=== PATIENT | female | born 1955 | race Caucasian/White ===

== ENCOUNTER 2017-05-28 12:02 | Inpatient (IN) | payer BC ==
[2017-05-28] VITALS (7 sets, daily range): BP systolic 90–105; BP diastolic 55–68
[~2017-05-28] VITALS: Ht 160 cm; Wt 59.2 kg
[~2017-05-28 12:02] MED LIST: ASP81TEC PO; BIOT1000 PO; BUTA1TAB55; CALC-404 PO; CALC-962 PO; EC; ECHINACEA; ESTR1TAB24 PO; FOLI1TAB24 PO; GLUC500C2 PO; HYDR-3729 PO; HYDR-757 PO; IBUP-1773 PO; LACT1CAP39 PO; METH-336 PO; METH2.5T PO; MULT-407 PO; MULT-974 PO; OMEG1CAP51 PO; [UNRECOGNIZED DRUG - CODE] PO
[2017-05-28] MEDS ORDERED: DILTIAZEM 25 MG/5 ML INJ (CARDIZEM) VIAL ONE (12:07)
--- OUTSIDE RECORDS SUMMARY | 2017-05-28 12:07 | XMS REPORT | Continuity of Care Document ---
Author Author [facility] Organization [facility] Address Unknown Phone Unavailable Allergies Active Description Code Type Severity Reaction Onset Reported/Identified Relationship to Patient Clinical Status Yes No Known Drug Allergies [id number] Drug Allergy Mild N/A 12/21/2008 Medications There is no data. 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, CIGARETTES, IN SAAD 03/29/2015 TEE HENDRIX MARKETING COMPLIANCE MANAGER Ot L43.9 LICHEN PLANUS, UNSPECIFIED 03/29/2015 TEE HENDRIX MARKETING COMPLIANCE MANAGER Ot N94.9 UNSP COND ASSOC W FEMALE GENITAL ORGANS 03/29/2015 TEE HENDRIX MARKETING COMPLIANCE MANAGER Ot Z79.899 OTHER NON LINEAR EDITOR (CURRENT) DRUG THERAPY 04/11/2015 KEVEN HAMMER DO Ot 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 04/11/2015 KEVEN HAMMER DO Ot N70.91 SALPINGITIS, UNSPECIFIED 04/11/2015 KEVEN HAMMER DO Ot N83.9 NONINFLAMMATORY DISORD OF OVARY, FALLOP 08/23/2015 KEVEN HAMMER DO Ot N94.89 08/23/2015 KEVEN HAMMER DO Ot Z01.818 08/23/2015 HAMMER DO, KEVEN C Ot Z11.2 09/05/2015 HAMMER DO, KEVEN C Ot N94.89 OTH COND ASSOC W FEMALE GENITAL ORGANS A 09/05/2015 HAMMER DO, KEVEN C Ot Z01.818 ENCOUNTER FOR OTHER PREPROCEDURAL EXAMIN 09/05/2015 HAMMER DO, KEVEN C Ot Z11.2 ENCOUNTER FOR SCREENING FOR OTHER BACTER 09/29/2015 HAMMER DO, KEVEN C Ot N94.89 OTH COND ASSOC W FEMALE GENITAL ORGANS A 09/29/2015 HAMMER DO, KEVEN C Ot Z01.818 ENCOUNTER FOR OTHER PREPROCEDURAL EXAMIN 09/29/2015 HAMMER DO, KEVEN C Ot Z11.2 ENCOUNTER FOR SCREENING FOR OTHER BACTER 12/21/2015 NAVID BUSH MD Ot M54.16 RADICULOPATHY, LUMBAR REGION 12/22/2015 NAVID BUSH MD Ot M54.16 RADICULOPATHY, LUMBAR REGION 01/11/2016 NAVID BUSH MD Ot M54.16 RADICULOPATHY, LUMBAR REGION 03/03/2017 HAMMER DO, KEVEN C Ot N94.89 OTH COND ASSOC W FEMALE GENITAL ORGANS A 03/03/2017 HAMMER DO, KEVEN C Ot Z01.818 ENCOUNTER FOR OTHER PREPROCEDURAL EXAMIN 03/03/2017 HAMMER DO, KEVEN C Ot Z11.2 ENCOUNTER FOR SCREENING FOR OTHER BACTER 03/03/2017 NAVID BUSH MD Ot M54.16 RADICULOPATHY, LUMBAR REGION Procedures There is no data. Results There is no data. Encounters ACCT No. Visit Date/Time Discharge Status Pt. Type Provider Facility Loc./Unit Complaint [id number] 12/13/2015 11:31:00 12/13/2015 23:59:59 CLS Outpatient NAVID BUSH MD [facility] RAD LUMBAR RADICULOPATHY [id number] 04/11/2015 08:15:00 04/11/2015 14:50:00 DIS Outpatient JAQUELIN FRASER KEVEN C [facility] SDC ADNEXIA CYST [id number] 04/04/2015 07:59:00 04/04/2015 23:59:59 CLS Outpatient KEVEN HAMMER DO [facility] PREOP ADNEXIA CYST [id number] 03/29/2015 20:29:00 03/29/2015 23:28:00 DIS Emergency TEE HENDRIX APRN [facility] ER LOWER ABD/BACK PAIN [id number] 01/18/2014 10:22:00 01/18/2014 23:59:59 CLS Outpatient [id number] 08/03/2013 11:31:00 08/03/2013 16:00:00 DIS Inpatient BIJAN WESLEY, TAMMIE Kerns [facility] CSD [id number] 02/01/2013 11:44:00 02/01/2013 23:59:59 CLS Outpatient [id number] 01/25/2013 12:19:00 01/25/2013 23:59:59 CLS Outpatient [id number] 10/29/2012 07:26:00 10/29/2012 23:59:59 CLS Outpatient [id number] 09/05/2012 14:50:00 09/05/2012 23:59:59 CLS Outpatient [id number] 04/05/2014 08:23:00 Document Registration [id number] 08/06/2010 08:52:00 Document Registration [id number] 04/17/2009 13:04:00 Document Registration [id number] 04/11/2009 07:43:00 Document Registration
[2017-05-28] MEDS ORDERED: ASPIRIN 81 MG CHEW (CHILDREN'S ASA) ONE (12:13)
[2017-05-28] MEDS ORDERED: ENOXAPARIN 80 MG/0.8 ML (LOVENOX) SYR ONE (12:13)
[2017-05-28 12:24] LABS: BASOPHILS % (AUTO) 0 % (0-10); EOSINOPHILS # (AUTO) 0.1 10^3/uL (0.0-0.3); EOSINOPHILS % (AUTO) 0 % (0-10); HEMATOCRIT 45 % (35-52); HEMOGLOBIN 15.4 G/DL (11.5-16.0); LYMPHOCYTES # (AUTO) 2.1 X 10^3 (1.0-4.0); LYMPHOCYTES % (AUTO) 11 % (12-44); MEAN CORPUSCULAR HEMOGLOBIN 30 PG (25-34); MEAN CORPUSCULAR HGB CONC 35 G/DL (32-36); MEAN CORPUSCULAR VOLUME 87 FL (80-99); MEAN PLATELET VOLUME 11.1 FL (7.4-10.4); MONOCYTES # (AUTO) 1.4 X 10^3 (0.0-1.0); MONOCYTES % (AUTO) 8 % (0-12); NEUTROPHILS # (AUTO) 14.7 X 10^3 (1.8-7.8); NEUTROPHILS % (AUTO) 80 % (42-75); PLATELET COUNT 349 10^3/uL (130-400); RED BLOOD COUNT 5.14 10^6/uL (4.35-5.85); WHITE BLOOD COUNT 18.2 10^3/uL (4.3-11.0)
[2017-05-28] MEDS ORDERED: meTOproloL SUCCINATE 50 MG (TOPROL XL) TAB PO SCH (12:30)
[2017-05-28] MEDS ORDERED: DILTIAZEM 25 MG/5 ML INJ (CARDIZEM) VIAL IVP ONE (12:30)
[2017-05-28] MEDS ORDERED: ENOXAPARIN 60 MG/0.6 ML (LOVENOX) SYR SC ONE (12:30)
[2017-05-28] MEDS ORDERED: ASPIRIN 81 MG CHEW (CHILDREN'S ASA) PO ONE (12:30)
[2017-05-28 12:39] LABS: INR 0.9 (0.8-1.4); PROTHROMBIN TIME PATIENT 12.6 SEC (12.2-14.7)
[2017-05-28 12:40] LABS: ALANINE AMINOTRANSFERASE 21 U/L (0-55); ALBUMIN 4.4 GM/DL (3.2-4.5); ALKALINE PHOSPHATASE 65 U/L (40-136); BILIRUBIN,TOTAL 0.5 MG/DL (0.1-1.0); BUN/CREATININE RATIO 14; CALCIUM 9.5 MG/DL (8.5-10.1); CARBON DIOXIDE 25 MMOL/L (21-32); CHLORIDE 102 MMOL/L (98-107); CREATININE SERUM 0.84 MG/DL (0.60-1.30); GFR ESTIMATED > 60; GLUCOSE 131 MG/DL (70-105); MAGNESIUM 2.2 MG/DL (1.8-2.4); POTASSIUM 3.3 MMOL/L (3.6-5.0); SODIUM 140 MMOL/L (135-145); TOTAL PROTEIN 8.2 GM/DL (6.4-8.2)
--- NOTE | 2017-05-28 12:41 | Diagnostic Imaging Report ---
INDICATION: Tachycardia and cough. COMPARISON: 08/03/2013. FINDINGS: Upright portable view of the chest is obtained. Heart size is normal. The pulmonary vessels appear unremarkable. There is no pneumothorax, mediastinal widening, or pleural fluid demonstrated. There is some increased density at the medial right lung base concerning for infiltrate. The left lung is clear. IMPRESSION: Probable right basilar pneumonia. Short-term follow-up study is recommended. Dictated by: Dictated on workstation # [id number]
[2017-05-28 13:00] LABS: BAND NEUTROPHILS 2 %; EOSINOPHILS % (MANUAL) 3 %; LYMPHOCYTES % (MANUAL) 3 %; MONOCYTES % (MANUAL) 7 %; NEUTROPHILS % (MANUAL) 80 %
[2017-05-28 13:01] LABS: BASOPHILS % (MANUAL) 0 %; PLATELET CLUMPS SLIGHT; POIKILOCYTOSIS SLIGHT; REACTIVE LYMPHOCYTES 5 %; STOMATOCYTES SLIGHT
[2017-05-28 13:02] LABS: ROULEAUX SLIGHT; TOXIC GRANULATION/VACUOLAZATIO 2+; TSH (THYROID ANALYZER) 1.11 UIU/ML (0.35-4.94)
[2017-05-28] MEDS ORDERED: PIPERACILLIN SODIUM/TAZOBACTAM 4.5 GM in NS (IVPB) 100 ML IV ONE (13:30)
[2017-05-28] MEDS ORDERED: NS (IVPB) 100 ML ONE (14:20)
[2017-05-28] MEDS ORDERED: PIPERACILLIN/TAZO 4.5 GM VIAL (ZOSYN) IV ONE (14:20)
--- NOTE | 2017-05-28 15:20 | Consultation-Cardiology ---
HPI-Cardiology Cardiology Consultation: Date of Consultation 05/28/17 Time Seen by Provider: 14:30 Date of Admission 05-28-17 Attending Physician Radha Talamantes DO Admitting Physician Fredis Iqbal MD Consulting Physician KENROY NATARAJAN HPI: Chief Complaint: SVT Ms. Parrish is a 61 year old female who is being admitted to ICU from the ED. She was seen in the ED. She is accompanied by her spouse. She reports she was seen in [facility] earlier today. She reports she has not been feeling well for the last 2 weeks. She reports fever, chills, cough, generalized fatigue and malaise. She denies any CP, palpitations, syncope or LE edema. She reports a few days ago she was doing laundry at home. She was bent over the washing machine and when she stood up she was lightheaded; this resolved after a few minutes. She reports she was evaluated at the [facility] and told she had a fast HR and to report to the ED. She reports she has had an occ lose cough. Review of Systems-Cardiology Review of Systems Constitutional: chills, fever, lightheadedness, malaise, tiredness Eyes: No vision change Ears/Nose/Throat: No epistaxis, No recent hearing loss, No throat pain Respiratory: As described under HPI Cardiovascular: As described under HPI Gastrointestinal: No constipation, No diarrhea, No nausea, No vomiting Genitourinary: No dysuria, No hematuria Musculoskeletal: other (pain under her left arm, in the arm-pit region) Skin: No rash, No ulcerations Psychiatric/Neurological: No seizure, No focal weakness, No syncope Hematologic: No bleeding abnormalities XRL-Qwjrjm-Bszfoy Hx Patient Social History Alcohol Use: Denies Use Recreational Drug Use: No Smoking Status: Former Smoker Former smoker/When Quit: May 12, 2002 Recent Foreign Travel: No Recent Infectious Disease Expo: No Past Medical History PMH As described under Assessment. Family Medical History Family Medical History: She reports her mother had HTN and DM Family History: 19 FATHER Hypertension 19 MOTHER Diabetes mellitus Hypertension FH: breast cancer G8 BROTHER Diabetes mellitus Cardiovascular disease Hypertension Allergies and Home Medications Allergies Coded Allergies: No Known Drug Allergies (Unverified , 12/21/08) Home Medications Aspirin 81 Mg Tabec, 81 MG PO DAILY, (Reported) Biotin 10,000 Mcg Capsule, 10,000 MCG PO DAILY, (Reported) Calcium Citrate/Vitamin D3 1 Each Tablet, 1 EACH PO DAILY, (Reported) Estradiol 1 Mg Tablet, 1 MG PO DAILY, (Reported) Glucosamine Sulfate 2Kcl 1,000 Mg Tablet, 1,000 MG PO DAILY, (Reported) Hydrocodone/Acetaminophen 1 Each Tablet, 1-2 EACH PO Q4H, #45 Prescribed by: KEVEN HAMMER on 04/11/15 1210 Ibuprofen 600 Mg Tablet, 600 MG PO Q6H, #60 Prescribed by: KEVEN HAMMER on 04/11/15 1210 Lactobacillus Rhamnosus 1 Cap Capsule, 1 CAP PO DAILY, (Reported) Methylcellulose 500 Mg Tablet, 500 MG PO DAILY, (Reported) Multivitamin with Minerals 1 Each Tablet, 1 EACH PO DAILY, (Reported) [place]-3 Fatty Acids/Fish Oil 1 Each Capsule, 1,000 MG PO DAILY, (Reported) Physical Exam-Cardiology Physical Exam Vital Signs/I&O Vital Sign - Last 12Hours 05/28/17 05/28/17 12:05 16:14 Temp 99.1 Pulse 177 70 Resp 20 B/P (MAP) 122/100 (107) Pulse Ox 99 Capillary Refill : Less Than 3 Seconds Constitutional: AAO x 3, well-developed, well-nourished HEENT: PERRL, hearing is well preserved, oral hygience is good Neck: No carotid bruit, carotid pulses are 2 + bilaterally Respiratory: No accessory muscle use, No respiratory distress, other ( diminished RLL) Cardiovascular: regular rate-rhythm, No JVD, S1 and S2 Gastrointestinal: No tender, soft, round, audible bowel sounds Rectal: deferred Extremities: no lower extremity edema bilateral Neurologic/Psychiatric: grossly intact, power is 5/5 both on sides Skin: No rash, No ulcerations Data Review Labs Laboratory Tests 05/28/17 12:09: White Blood Count 18.2H, Red Blood Count 5.14, Hemoglobin 15.4, Hematocrit 45, Mean Corpuscular Volume 87, Mean Corpuscular Hemoglobin 30, Mean Corpuscular Hemoglobin Concent 35, Red Cell Distribution Width 13.0, Platelet Count 349, Mean Platelet Volume 11.1H, Neutrophils (%) (Auto) 80H, Lymphocytes (%) (Auto) 11L, Monocytes (%) (Auto) 8, Eosinophils (%) (Auto) 0, Basophils (%) (Auto) 0, Neutrophils # (Auto) 14.7H, Lymphocytes # (Auto) 2.1, Monocytes # (Auto) 1.4H, Eosinophils # (Auto) 0.1, Basophils # (Auto) 0.0, Neutrophils % (Manual) 80, Lymphocytes % (Manual) 3, Monocytes % (Manual) 7, Eosinophils % (Manual) 3, Basophils % (Manual) 0, Band Neutrophils 2, Reactive Lymphocytes 5, Toxic Granulation 2+, Clumped Platelets SLIGHT, Poikilocytosis SLIGHT, Stomatocytes SLIGHT, Rouleau SLIGHT, Prothrombin Time 12.6, INR Comment 0.9, Activated Partial Thromboplast Time 32, Sodium Level 140, Potassium Level 3.3L, Chloride Level 102, Carbon Dioxide Level 25, Anion Gap 13, Blood Urea Nitrogen 12, Creatinine 0.84, Estimat Glomerular Filtration Rate > 60, BUN/Creatinine Ratio 14, Glucose Level 131H, Calcium Level 9.5, Magnesium Level 2.2, Total Bilirubin 0.5, Aspartate Amino Transf (AST/SGOT) 20, Alanine Aminotransferase (ALT/SGPT) 21, Alkaline Phosphatase 65, Troponin I < 0.30, B-Type Natriuretic Peptide 57.3 , Total Protein 8.2, Albumin 4.4, TSH [place] Testing 1.11 05/28/17 13:25: Lactic Acid Level 1.48 Microbiology 05/28/17 Influenza Types A,B Antigen (RACQUEL) - Final, Complete Radiology NAME: TONYA PARRISH [facility] REC#: [id number] PT STATUS: ADM IN : 1955 PHYSICIAN: VITA HERNANDEZ DO ADMIT DATE: 05/28/17/ICU Signed Date of Exam: 05/28/17 CHEST 1 VIEW, AP/PA ONLY INDICATION: Tachycardia and cough. COMPARISON: 08/03/2013. FINDINGS: Upright portable view of the chest is obtained. Heart size is normal. The pulmonary vessels appear unremarkable. There is no pneumothorax, mediastinal widening, or pleural fluid demonstrated. There is some increased density at the medial right lung base concerning for infiltrate. The left lung is clear. IMPRESSION: Probable right basilar pneumonia. Short-term follow-up study is recommended. Dictated by: Dictated on workstation # [id number] Dict: 05/28/17 1237 Trans: 05/28/17 1458 Interpreted by: GRABIEL LARIOS DO Electronically signed by: GRABIEL LARIOS DO 05/28/17 1458 A/P-Cardiology Assessment/Admission Diagnosis SVT RLL infiltrate suspicious for pneumonia - medical services managing Hypokalemia - replace Exercise MPI July [address] Nunes was negative for ischemia or infarct H/O hysterectomy TSH 1.11 KENROY BUSH May 28, 2017 15:20
[2017-05-28] MEDS ORDERED: KCL 20 MEQ TAB (K-DUR) PO NR (15:45)
[2017-05-28] MEDS ORDERED: CATHETER FLUSH 10 ML SYR IV PRN (16:15)
--- NOTE | 2017-05-28 16:56 | History & Physical-Hospitalist ---
HPI History of Present Illness: HPI/Chief Complaint CC: SVT with RLL pneumonia HPI: This is a 61yoWF clinic patient of Dr Iqbal who recently took 3 days of Augmentin for bronchitis but could not continue the Rx due to nausea who presented to [facility] and was found to have a fast heart rate so [facility] ER evaluated her to have SVT which was aborted with Cardizem but then CXR revealed RLL pneumonia so she has been admitted for IV abx due to failure of Augmentin and Cardiology consulted for SVT. Source: patient Exam Limitations: no limitations Date Seen 05/28/17 Time Seen by Provider: 13:40 Attending Physician Radha Talamantes Floyd R MD Referring Physician Date of Admission May 28, 2017 at 13:20 Home Medications & Allergies Home Medications Reviewed patient Home Medication Reconciliation Form Allergies Allergies Coded Allergies No Known Drug Allergies (Unverified12/21/08) Past Luozwhq-Efxdjh-Tqfmte Hx Patient Social History Marrital Status: Employed/Student: employed ([employer]) Alcohol Use: Denies Use Recreational Drug Use: No Smoking Status: Former Smoker Former Smoker, Quit: September 09, 2002 Recent Foreign Travel: No Contact w/other who traveled: No Recent Infectious Disease Expo: No Surgeries Yes (wisdom teeth) Adenoidectomy, Hysterectomy, Oophorectomy, Tonsillectomy Respiratory No Cardiovascular Yes High Cholesterol Neurological No Reproductive System Hx Reproductive Disorders: Yes (complex left adnexal cyst) 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 Genitourinary No Gastrointestinal No Musculoskeletal No Endocrine History of Endocrine Disorders: No Cancer No Psychosocial History of Psychiatric Problem: No Integumentary History of Skin or Integumenta: Yes (LICHEN PLANUS) Blood Transfusions History of Blood Disorders: No Family Medical History Family Hx: Cardiovascular disease G8 BROTHER Diabetes mellitus 19 MOTHER G8 BROTHER FH: breast cancer 19 MOTHER Hypertension 19 FATHER 19 MOTHER G8 BROTHER Review of Systems Constitutional: see HPI, dizziness, malaise EENTM: no symptoms reported Respiratory: cough, wheezing Cardiovascular: palpitations Gastrointestinal: no symptoms reported Genitourinary: no symptoms reported Musculoskeletal: no symptoms reported Skin: no symptoms reported Psychiatric/Neurological: No Symptoms Reported All Other Systems Reviewed Negative Unless Noted: Yes Physical Exam Physical Exam Vital Signs Vital Sign - Last 12Hours 05/28/17 12:05 Temp 99.1 Pulse 177 Resp 20 B/P (MAP) 122/100 (107) Pulse Ox 99 Capillary Refill : Less Than 3 Seconds General Appearance: No Apparent Distress, WD/WN, Thin Eyes: Bilateral Eye Normal Inspection, Bilateral Eye PERRL HEENT: PERRL/EOMI, Normal ENT Inspection, Pharynx Normal Neck: Full Range of Motion, Normal Inspection, Non Tender, Supple, Carotid Bruit Respiratory: Chest Non Tender, Lungs Clear, No Accessory Muscle Use, No Respiratory Distress, Decreased Breath Sounds Cardiovascular: Regular Rate, Rhythm, No Edema, No Gallop, No JVD, No Murmur, Normal Peripheral Pulses Gastrointestinal: Normal Bowel Sounds, No Organomegaly, No Pulsatile Mass, Non Tender, Soft Back: Normal Inspection, No CVA Tenderness, No Vertebral Tenderness Extremity: Normal Capillary Refill, Normal Inspection, Normal Range of Motion, Non Tender, No Calf Tenderness, No Pedal Edema Neurologic/Psychiatric: Alert, Oriented x3, No Motor/Sensory Deficits, Normal Mood/Affect Skin: Normal Color, Warm/Dry Lymphatic: No Adenopathy Results Results/Procedures Lab Laboratory Tests 05/28/17 12:09 Assessment/Plan Admission Diagnosis Assessment: Episode of SVT aborted with Cardizem RLL Pneumonia failed outpatient Augmentin HLP Former smoker Assessment and Plan Plan: Abx MAT Cardiology appreciated RADHA TALAMANTES DO May 28, 2017 16:56
[2017-05-28] MEDS ORDERED: fentaNYL INJECTION 100 MCG/2 ML AMP IVP PRN (17:15)
[2017-05-28] MEDS ORDERED: PIPERACILLIN SODIUM/TAZOBACTAM 4.5 GM in NS (IVPB) 100 ML IV SCH (17:15)
[2017-05-28] MEDS ORDERED: HYDROcodone/APAP 5 MG/325 MG (LORTAB) TAB PO PRN (17:15)
[2017-05-28] MEDS ORDERED: ONDANSETRON 4 MG/2 ML (SDV) Z0FRAN IVP PRN (17:15)
[2017-05-28] MEDS ORDERED: ALPRAZolam 0.25 MG (XANAX) TAB PO PRN (17:15)
[2017-05-28] MEDS ORDERED: ACETAMINOPHEN 500 MG TAB (TYLENOL) PO PRN (17:15)
[2017-05-28] MEDS ORDERED: LACTULOSE SYRUP 10GM/15ML (ENULOSE) 30ML UDC PO PRN (17:15)
[2017-05-28] MEDS ORDERED: MELO15TA39 PO (17:31)
[2017-05-28] MEDS ORDERED: [UNRECOGNIZED DRUG - OTHER] PO (17:31)
[2017-05-28] MEDS ORDERED: CHOL100045 PO (17:31)
[2017-05-28] MEDS: NS IV 1000 ML 1,000 ML IV SCH (17:51)
--- NOTE | 2017-05-28 18:09 | Consultation-Cardiology ---
HPI-Cardiology Cardiology Consultation: Date of Consultation 05/28/17 Time Seen by Provider: 16:50 Date of Admission Attending Physician Radha Talamantes DO Admitting Physician Fredis Iqbal MD Consulting Physician CEDRIC STEINER MD, MA, FACP, FACC, [facility] HPI: Chief Complaint: SVT Ms. Nguyễn is a 61 year old female who is being admitted to ICU from the ED. She was seen in the ED. She is accompanied by her spouse. She reports she was seen in [facility] earlier today. She reports she has not been feeling well for the last 2 weeks. She reports fever, chills, cough, generalized fatigue and malaise. She denies any CP, palpitations, syncope or LE edema. She reports a few days ago she was doing laundry at home. She was bent over the washing machine and when she stood up she was lightheaded; this resolved after a few minutes. She reports she was evaluated at the [facility] and told she had a fast HR and to report to the ED. She reports she has had an occ lose cough. Review of Systems-Cardiology Review of Systems Constitutional: chills, fever, lightheadedness, malaise, tiredness Eyes: No vision change Ears/Nose/Throat: No epistaxis, No recent hearing loss, No throat pain Respiratory: As described under HPI Cardiovascular: As described under HPI Gastrointestinal: No constipation, No diarrhea, No nausea, No vomiting Genitourinary: No dysuria, No hematuria Musculoskeletal: other (pain under her left arm, in the arm-pit region) Skin: No rash, No ulcerations Psychiatric/Neurological: No seizure, No focal weakness, No syncope Hematologic: No bleeding abnormalities All Other Systems Reviewed Negative Unless Noted: Yes UDG-Ccbkae-Iklkqh Hx Patient Social History Marrital Status: Employed/Student: employed ([employer]s [email or web address] Alcohol Use: Denies Use Recreational Drug Use: No Smoking Status: Former Smoker Former smoker/When Quit: May 12, 2002 Recent Foreign Travel: No Recent Infectious Disease Expo: No Past Medical History PMH As described under Assessment. Family Medical History Family Medical History: She reports her mother had HTN and DM Family History: Cardiovascular disease G8 BROTHER Diabetes mellitus 19 MOTHER G8 BROTHER FH: breast cancer 19 MOTHER Hypertension 19 FATHER 19 MOTHER G8 BROTHER Allergies and Home Medications Allergies Coded Allergies: No Known Drug Allergies (Unverified , 12/21/08) Home Medications Aspirin 81 Mg Tabec, 81 MG PO DAILY, (Reported) Biotin 10,000 Mcg Capsule, 10,000 MCG PO DAILY, (Reported) Calcium Citrate/Vitamin D3 1 Each Tablet, 1 EACH PO DAILY, (Reported) Cholecalciferol (Vitamin D3) 1,000 Unit Tablet, 1,000 UNIT PO DAILY, (Reported) Estradiol 1 Mg Tablet, 1 MG PO DAILY, (Reported) Glucosamine Sulfate 2Kcl 1,000 Mg Tablet, 1,000 MG PO DAILY, (Reported) Ibuprofen 600 Mg Tablet, 600 MG PO Q6H, #60 Prescribed by: KEVEN HAMMER on 04/11/15 1210 Lactobacillus Rhamnosus 1 Cap Capsule, 1 CAP PO DAILY, (Reported) Meloxicam 15 Mg Tablet, 15 MG PO Q72H, (Reported) Multivitamin with Minerals 1 Each Tablet, 1 EACH PO DAILY, (Reported) [place]-3 Fatty Acids/Fish Oil 1 Each Capsule, 1,000 MG PO DAILY, (Reported) [[place]] , 1 TAB PO DAILY, (Reported) Physical Exam-Cardiology Physical Exam Vital Signs/I&O Vital Sign - Last 12Hours 05/28/17 05/28/17 05/28/17 12:05 16:14 17:29 Temp 99.1 Pulse 177 70 61 Resp 20 B/P (MAP) 122/100 (107) Pulse Ox 99 100 FiO2 28 Capillary Refill : Less Than 3 Seconds Constitutional: AAO x 3, well-developed, well-nourished HEENT: PERRL, hearing is well preserved, oral hygience is good Neck: No carotid bruit, carotid pulses are 2 + bilaterally Respiratory: No accessory muscle use, No respiratory distress, other ( diminished RLL) Cardiovascular: regular rate-rhythm, No JVD, S1 and S2 Gastrointestinal: No tender, soft, round, audible bowel sounds Rectal: deferred Extremities: no lower extremity edema bilateral Neurologic/Psychiatric: grossly intact, power is 5/5 both on sides Skin: No rash, No ulcerations Data Review Labs Laboratory Tests 05/28/17 12:09: White Blood Count 18.2H, Red Blood Count 5.14, Hemoglobin 15.4, Hematocrit 45, Mean Corpuscular Volume 87, Mean Corpuscular Hemoglobin 30, Mean Corpuscular Hemoglobin Concent 35, Red Cell Distribution Width 13.0, Platelet Count 349, Mean Platelet Volume 11.1H, Neutrophils (%) (Auto) 80H, Lymphocytes (%) (Auto) 11L, Monocytes (%) (Auto) 8, Eosinophils (%) (Auto) 0, Basophils (%) (Auto) 0, Neutrophils # (Auto) 14.7H, Lymphocytes # (Auto) 2.1, Monocytes # (Auto) 1.4H, Eosinophils # (Auto) 0.1, Basophils # (Auto) 0.0, Neutrophils % (Manual) 80, Lymphocytes % (Manual) 3, Monocytes % (Manual) 7, Eosinophils % (Manual) 3, Basophils % (Manual) 0, Band Neutrophils 2, Reactive Lymphocytes 5, Toxic Granulation 2+, Clumped Platelets SLIGHT, Poikilocytosis SLIGHT, Stomatocytes SLIGHT, Rouleau SLIGHT, Prothrombin Time 12.6, INR Comment 0.9, Activated Partial Thromboplast Time 32, Sodium Level 140, Potassium Level 3.3L, Chloride Level 102, Carbon Dioxide Level 25, Anion Gap 13, Blood Urea Nitrogen 12, Creatinine 0.84, Estimat Glomerular Filtration Rate > 60, BUN/Creatinine Ratio 14, Glucose Level 131H, Calcium Level 9.5, Magnesium Level 2.2, Total Bilirubin 0.5, Aspartate Amino Transf (AST/SGOT) 20, Alanine Aminotransferase (ALT/SGPT) 21, Alkaline Phosphatase 65, Troponin I < 0.30, B-Type Natriuretic Peptide 57.3 , Total Protein 8.2, Albumin 4.4, TSH [place] Testing 1.11 05/28/17 13:25: Lactic Acid Level 1.48 05/28/17 17:40: Microbiology 05/28/17 Influenza Types A,B Antigen (RACQUEL) - Final, Complete Laboratory Tests 05/28/17 12:09 A/P-Cardiology Assessment/Admission Diagnosis SVT, 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 Nunes was negative for ischemia or infarct H/O hysterectomy TSH 1.11 Discussion and Recomendations * Replenish K * Treat with beta-aishwarya, if tolerated * Monitor labs * Med Svce is to treat pneumonia * I spoke with her and answered her CV-related questions CEDRIC STEINER MD FACP FACC [facility]S May 28, 2017 18:09
[2017-05-28] MEDS: IBUPROFEN TABLET 200 MG TAB PO PRN (20:10)
[2017-05-28] MEDS: PIPERACILLIN/TAZOBACTAM 4.5 GM/NS 100 ML IVPB IV SCH ×2 (20:10)
[2017-05-28] MEDS ORDERED: NS IV 1000 ML 1,000 ML IV ONE (20:45)
[2017-05-28] MEDS ORDERED: RT-ALBUTEROL/IPRATROPIUM 3 ML (DUONEB) VIAL INH SCH (21:00)
[2017-05-28] MEDS: RT-LEVALBUTEROL (XOPENEX) 1.25 MG/3 ML NEB NON-FORMULARY INH SCH (21:22)
[2017-05-28] MEDS: SENNA W/DOCUSATE (SENOKOT S) TABLET PO SCH (21:28)
[2017-05-28] MEDS: CATHETER FLUSH 10 ML SYR IV SCH (21:56)
[2017-05-29] VITALS: BP 95/55
[2017-05-29 04:00] VITALS: BP 95/57
[2017-05-29] MEDS: PIPERACILLIN/TAZOBACTAM 4.5 GM/NS 100 ML IVPB IV SCH ×2 (04:54)
[2017-05-29] MEDS: NS IV 1000 ML 1,000 ML IV SCH (04:55)
[2017-05-29 05:15] LABS: BASOPHILS % (AUTO) 0 % (0-10); EOSINOPHILS % (AUTO) 0 % (0-10); HEMATOCRIT 35 % (35-52); HEMOGLOBIN 11.7 G/DL (11.5-16.0); LYMPHOCYTES # (AUTO) 1.8 X 10^3 (1.0-4.0); LYMPHOCYTES % (AUTO) 16 % (12-44); MEAN CORPUSCULAR HEMOGLOBIN 30 PG (25-34); MEAN CORPUSCULAR HGB CONC 34 G/DL (32-36); MEAN CORPUSCULAR VOLUME 89 FL (80-99); MONOCYTES # (AUTO) 1.2 X 10^3 (0.0-1.0); MONOCYTES % (AUTO) 10 % (0-12); NEUTROPHILS # (AUTO) 8.6 X 10^3 (1.8-7.8); NEUTROPHILS % (AUTO) 74 % (42-75); PLATELET COUNT 237 10^3/uL (130-400); RED CELL DISTRIBUTION WIDTH 13.3 % (10.0-14.5); WHITE BLOOD COUNT 11.7 10^3/uL (4.3-11.0)
[2017-05-29 05:59] LABS: ALANINE AMINOTRANSFERASE 25 U/L (0-55); ALBUMIN 3.1 GM/DL (3.2-4.5); ALKALINE PHOSPHATASE 44 U/L (40-136); BILIRUBIN,TOTAL 0.6 MG/DL (0.1-1.0); BUN/CREATININE RATIO 17; CALCIUM 8.2 MG/DL (8.5-10.1); CARBON DIOXIDE 21 MMOL/L (21-32); CHLORIDE 111 MMOL/L (98-107); CHOLESTEROL 169 MG/DL (< 200); CREATININE SERUM 0.75 MG/DL (0.60-1.30); GFR ESTIMATED > 60; GLUCOSE 100 MG/DL (70-105); HDL CHOLESTEROL 45 MG/DL (40-60); MAGNESIUM 2.1 MG/DL (1.8-2.4); POTASSIUM 4.2 MMOL/L (3.6-5.0); SODIUM 141 MMOL/L (135-145); TOTAL PROTEIN 5.7 GM/DL (6.4-8.2); TRIGLYCERIDES 83 MG/DL (<150); VLDL CHOLESTEROL 17 MG/DL (5-40)
[2017-05-29] MEDS: RT-LEVALBUTEROL (XOPENEX) 1.25 MG/3 ML NEB NON-FORMULARY INH SCH (06:06)
[2017-05-29] MEDS: CATHETER FLUSH 10 ML SYR IV SCH (06:07)
[2017-05-29] MEDS ORDERED: INFLUENZA TRIvalent 2017-2018 0.5 ML/45 MCG SYR IM ONE (07:00)
--- NOTE | 2017-05-29 08:12 | Diagnostic Imaging Report ---
INDICATION: Pneumonia. Supraventricular tachycardia. TECHNIQUE: Two view chest 07:35 a.m. CORRELATION STUDY: 05/28/2017. FINDINGS: The heart size, mediastinal configuration and pulmonary vasculature are within normal limits. Infiltrate of the right lung base, right middle lobe. Persistent overall generally stable. Remaining lung mackay appear unchanged. Visualized osseous structures are unremarkable. IMPRESSION: 1. Right middle lobe infiltrate most compatible with pneumonia, generally stable. Dictated by: Dictated on workstation # [id number]
[2017-05-29 08:30] VITALS: BP 112/77
[2017-05-29] MEDS: SENNA W/DOCUSATE (SENOKOT S) TABLET PO SCH (08:45)
--- NOTE | 2017-05-29 08:58 | Progress Note-Cardiology ---
Cardiology SOAP Progress Note Subjective: Sitting up in bed. States she feels her breathing is somewhat better today. Reports occ productive cough. No c/o CP or palpitations. Objective: I&O/Vital Signs Vital Sign - Last 12Hours 05/29/17 05/29/17 05/29/17 05/29/17 06:08 07:00 08:00 08:00 Pulse 65 Pulse Ox 100 100 100 O2 Delivery Room Air Room Air Room Air 05/29/17 05/29/17 08:30 12:45 Temp 97.9 Pulse 78 78 Resp 16 16 B/P (MAP) 112/77 (89) 112/77 Pulse Ox 100 100 O2 Delivery Room Air Room Air Weight (Pounds): 130 Weight (Ounces): 7.0 Weight (Calculated Kilograms): 59.850098 Constitutional: AAO x 3, well-developed, well-nourished Respiratory: No accessory muscle use, No respiratory distress, crackles (RLL), other (diminished RLL) Cardiovascular: regular rate-rhythm, No JVD, S1 and S2 Gastrointestional: No tender, soft, round, audible bowel sounds Extremities: no lower extremity edema bilateral Neurologic/Psychiatric: grossly intact, power is 5/5 both on sides Skin: No rash, No ulcerations Results/Procedures: Labs Laboratory Tests 05/28/17 17:40: Lactic Acid Level 0.94 05/29/17 04:45: White Blood Count 11.7H, Red Blood Count 3.90L, Hemoglobin 11.7#, Hematocrit 35 , Mean Corpuscular Volume 89, Mean Corpuscular Hemoglobin 30, Mean Corpuscular Hemoglobin Concent 34, Red Cell Distribution Width 13.3, Platelet Count 237, Mean Platelet Volume 11.0H, Neutrophils (%) (Auto) 74, Lymphocytes (%) (Auto) 16 , Monocytes (%) (Auto) 10, Eosinophils (%) (Auto) 0, Basophils (%) (Auto) 0, Neutrophils # (Auto) 8.6H, Lymphocytes # (Auto) 1.8, Monocytes # (Auto) 1.2H, Eosinophils # (Auto) 0.0, Basophils # (Auto) 0.0, Sodium Level 141, Potassium Level 4.2, Chloride Level 111H, Carbon Dioxide Level 21, Anion Gap 9, Blood Urea Nitrogen 13, Creatinine 0.75, Estimat Glomerular Filtration Rate > 60, BUN/ Creatinine Ratio 17, Glucose Level 100, Calcium Level 8.2L, Magnesium Level 2.1 , Total Bilirubin 0.6, Aspartate Amino Transf (AST/SGOT) 20, Alanine Aminotransferase (ALT/SGPT) 25, Alkaline Phosphatase 44, Total Protein 5.7L, Albumin 3.1L, Triglycerides Level 83, Cholesterol Level 169, LDL Cholesterol Direct 111, VLDL Cholesterol 17, HDL Cholesterol 45 Microbiology 05/28/17 Blood Culture - Preliminary, Resulted No growth 05/28/17 Influenza Types A,B Antigen (RACQUEL) - Final, Complete Procedures NAME: TONYA PARRISH [facility] REC#: [id number] PT STATUS: ADM IN : 1955 PHYSICIAN: LOTUS ALEJANDRA DO ADMIT DATE: 05/28/17/ICU Signed Date of Exam: 05/29/17 CHEST PA/LAT (2 VIEW) INDICATION: Pneumonia. Supraventricular tachycardia. TECHNIQUE: Two view chest 07:35 a.m. CORRELATION STUDY: 05/28/2017. FINDINGS: The heart size, mediastinal configuration and pulmonary vasculature are within normal limits. Infiltrate of the right lung base, right middle lobe. Persistent overall generally stable. Remaining lung mackay appear unchanged. Visualized osseous structures are unremarkable. IMPRESSION: 1. Right middle lobe infiltrate most compatible with pneumonia, generally stable. 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 Nunes was negative for ischemia or infarct H/O hysterectomy TSH 1.11 Plan: * Continue beta-aishwarya, if tolerated * Monitor labs * Med Svce is to treat pneumonia * Dr. Headley spoke with her and answered her CV-related questions Physician Assessment Physician Assessment No cp or palp or syncope. Feels well. Wishes to go home Lungs: good bilat air entry Cor: reg Ext: no c/c/e A&R * As documented in our note above that I updated (italics) and as noted below * I spoke with her in detail and explained CV findings and our treatment plan * Outpatient f/u is advised * F/u on and treatment of possible resp tract infection is with the Medical Service KENROY BUSH May 29, 2017 08:58 CEDRIC HEADLEY MD FACP [facility] May 29, 2017 16:45
[2017-05-29] MEDS ORDERED: meTOproloL SUCCINATE 50 MG (TOPROL XL) TAB PO SCH (09:00)
[2017-05-29] MEDS: IBUPROFEN TABLET 200 MG TAB PO PRN (09:00)
[2017-05-29] MEDS ORDERED: METO-370 PO (10:42)
[2017-05-29] MEDS ORDERED: CEFD300C3 PO (11:40)
--- NOTE | 2017-05-29 11:42 | Discharge Summary-Hospitalist ---
Diagnosis/Chief Complaint Date of Admission May 28, 2017 at 13:20 Date of Discharge Discharge Date: May 29, 2017 Admission Diagnosis Assessment: Episode of SVT aborted with Cardizem RLL Pneumonia failed outpatient Augmentin HLP Former smoker Discharge Diagnosis Assessment: Episode of SVT aborted with Cardizem RLL Pneumonia failed outpatient Augmentin HLP Former smoker Plan: Abx MAT Cardiology appreciated Discharge Summary Discharge Physical Examination Allergies: Coded Allergies: No Known Drug Allergies (Unverified , 12/21/08) Vitals & I&Os Vital Signs Date Time Temp Pulse Resp B/P (MAP) Pulse Ox O2 Delivery O2 Flow Rate FiO2 05/29/17 12:45 78 16 112/77 100 Room Air 05/29/17 08:30 97.9 05/28/17 17:29 28 Hospital Course Patient had an uneventful hospital course she was admitted placed on IV antibiotics and she failed outpatient antibiotics for upper respiratory infection that was revealed to have right lower lobe pneumonia on chest x-ray during ER admission. She was found to have SVT aborted quickly after Cardizem given and cardiology was consulted. She is placed on metoprolol was tolerating oral intake was non-hypoxic and was ready for discharge. Labs (last 24 hrs) Microbiology 05/28/17 Blood Culture - Preliminary, Resulted No growth 05/28/17 Influenza Types A,B Antigen (RACQUEL) - Final, Complete Pending Labs Discharge Home Medications: Active Scripts Active Cefdinir 300 Mg Capsule 300 Mg PO BID Metoprolol Succinate 50 Mg Tab.er.24h 50 Mg PO DAILY Ibuprofen 600 Mg Tablet 600 Mg PO Q6H Reported [Litigold] 1 Tab PO DAILY Meloxicam 15 Mg Tablet 15 Mg PO Q72H Vitamin D (Cholecalciferol (Vitamin D3)) 1,000 Unit Tablet 1,000 Unit PO DAILY Rick Biotin (Biotin) 10,000 Mcg Capsule 10,000 Mcg PO DAILY One Daily 50 Plus (Multivitamin with Minerals) 1 Each Tablet 1 Each PO DAILY Glucosamine Sulfate (Glucosamine Sulfate 2Kcl) 1,000 Mg Tablet 1,000 Mg PO DAILY Calcium Citrate +Vit D3 Tablet (Calcium Citrate/Vitamin D3) 1 Each Tablet 1 Each PO DAILY Aspirin Ec 81 Mg (Aspirin) 81 Mg Tabec 81 Mg PO DAILY Fish Oil 1,000 Mg Softgel ([place]-3 Fatty Acids/Fish Oil) 1 Each Capsule 1,000 Mg PO DAILY Culturelle (Lactobacillus Rhamnosus) 1 Cap Capsule 1 Cap PO DAILY Estrace (Estradiol) 1 Mg Tablet 1 Mg PO DAILY Instructions to patient/family Please see electronic discharge instructions given to patient. Clinical Quality Measures DVT/VTE Risk/Contraindication: Risk Factor Score Per Nursin RFS Level Per Nursing on Admit: 4+=Very High LOTUS ALEJANDRA DO May 29, 2017 11:42
[2017-05-29 12:45] VITALS: BP 112/77
[2017-05-29] MEDS ORDERED: PIPERACILLIN IV SCH ×2 (13:00)
[2017-05-29] MEDS ORDERED: DEXTROSE IV SCH ×2 (13:00)
[2017-05-29] MEDS ORDERED: TAZOBACTAM IV SCH ×2 (13:00)
== END 2017-05-29 12:45 | disposition home or self-care (01) | DRG 308 ==
LOC: EDUNIT# 12:02 → ER 12:03 → CSD 13:20 → ICU 13:21
PROVIDERS: ADMIT Internal Medicine; ATTEND Internal Medicine
DX: I47.1 Supraventricular tachycardia (principal); J18.9 Pneumonia, unspecified organism; E87.6 Hypokalemia; E78.5 Hyperlipidemia, unspecified; Z87.891 Personal history of nicotine dependence; Z90.710 Acquired absence of both cervix and uterus
CPT/HCPCS: 36415; 71045; 71046; 80053; 80061; 83605; 83735; 83880; 84443; 84484; 85007; 85025; 85027; 85610; 85730; 87040; 87804; 93005; 93041; 93306; 94640

== ENCOUNTER → 2018-02-05 | Outpatient (CLI) | payer BC ==
[~2018-02-05] MED LIST changes: +ASPI-999 PO; +CEFD300C3 PO; +CHOL100045 PO; +HYDR-4226 PO; -HYDR-757 PO; +LUTE1CAP6 PO; +LYSI100014 PO; +MELO15TA39 PO; +MELO7.5T46 PO; -METH2.5T PO; +METO-370 PO; +MTX2.5T PO; +MULT-166 PO; +OMEG-143 PO; +[UNRECOGNIZED DRUG - OTHER] PO
--- NOTE | 2018-02-06 19:34 | Diagnostic Imaging Report ---
The current study was also evaluated with a Computer Aided Detection (CAD) system. 3-D tomosynthesis was also performed and reviewed. INDICATION: Digital mammogram bilateral screening. This study was compared to the prior exam of 10/29/2012. At this time, there are no current complaints. FINDINGS: The fibroglandular tissue in both breasts is dense. This does limit the sensitivity of this exam. Overall, there does not appear to have been any significant change when compared to the prior study. No primary or secondary sign of malignancy is noted. 3D tomographic images fail to show any sign of malignancy. IMPRESSION: 1. There is no evidence of malignancy. 2. The patient should have her annual bilateral screening mammogram on schedule in January of 2019. ACR BI-RADS Category 1: Negative. Result letter will be mailed to the patient. Note: At least 10% of breast cancer is not imaged by mammography. Dictated by: Dictated on workstation # [id number]
== END ==
LOC: RAD 13:34
PROVIDERS: ATTEND Nurse Practitioner
DX: Z12.31 Encounter for screening mammogram for malignant neoplasm of breast (principal)
CPT/HCPCS: 77067

== ENCOUNTER 2018-02-12 12:33 | Outpatient (CLI) | payer BC ==
[~2018-02-12] VITALS: Ht 160 cm; Wt 60.3 kg
[2018-02-17] MEDS ORDERED: HYDR-4226 PO (08:26)
[2018-02-17] MEDS ORDERED: Benzocaine/Menthol TP (08:26)
== END 2018-02-12 12:57 | disposition home or self-care (01) ==
LOC: PREOP 12:33
PROVIDERS: ATTEND Obstetrics & Gynecology
DX: Z01.818 Encounter for other preprocedural examination (principal)

== ENCOUNTER 2018-02-17 06:31 | Day surgery (SDC) | payer BC ==
[~2018-02-17] VITALS: Ht 160 cm; Wt 60.3 kg
[2018-02-17 06:45] VITALS: BP 136/64
[2018-02-17] MEDS ORDERED: ceFAZolin INJECTION 1,000 MG in NS (IVPB) 50 ML IV ONE (06:45)
[2018-02-17] MEDS ORDERED: LACTATED RINGERS 1,000 ML IV PRN (06:45)
[2018-02-17] MEDS ORDERED: proPOfol 200 MG/20 ML (DIPRIVAN) VIAL IV ONE (06:56)
[2018-02-17] MEDS ORDERED: MIDAZOLAM 2 MG/2 ML (VERSED) VIAL ONE (06:56)
[2018-02-17] MEDS ORDERED: LIDOCAINE PF 2% 2 ML (XYLOCAINE) VIAL ONE (06:56)
[2018-02-17] MEDS ORDERED: ONDANSETRON 4 MG/2 ML (SDV) Z0FRAN ONE (06:56)
[2018-02-17] MEDS ORDERED: fentaNYL INJECTION 100 MCG/2 ML AMP ONE (06:56)
[2018-02-17] MEDS ORDERED: DEXAMETHASONE 10 MG/ML (DECADRON) 1 ML VIAL ONE (06:56)
[2018-02-17] MEDS ORDERED: SEVOFLURANE (ULTANE) 15 ML INHAL SOLN ONE (07:01)
[2018-02-17] MEDS ORDERED: CATHETER FLUSH 10 ML SYR IV PRN (07:15)
--- NOTE | 2018-02-17 07:15 | Progress Note-Pre Operative ---
Pre-Operative Progress Note H&P Reviewed The H&P was reviewed, patient examined and no changes noted. Date Seen by Provider: Feb 17, 2018 Time Seen by Provider: 07:20 Date H&P Reviewed: Feb 17, 2018 Time H&P Reviewed: 07:15 Pre-Operative Diagnosis: perianal lesion, history of lichen planus KEVEN HAMMER DO Feb 17, 2018 07:15
[2018-02-17] MEDS ORDERED: BUP/EPI 0.5% 1:200,000 (SENSORCAINE) 30 ML VIAL ONE (07:32)
[2018-02-17] MEDS ORDERED: PHENYLEPHRINE 100 MCG/ML 10 ML (ANESTHESIA) SYR ONE (08:22)
--- NOTE | 2018-02-17 08:22 | Operative Report ---
Operative Report Date of Procedure/Surgery Feb 17, 2018 Surgeon (s) KEVEN HAMMER DO Pull Over Machine Operator (s): na Post-Operative Diagnosis PERIANAL LESION, HISTORY OF LICHEN PLANUS Procedure Performed EXCISION OF PERIANAL LESION Description of Procedure Anesthesia Type: MAC Estimated blood loss (mL): NONE Specimen(s) collected/removed PERIANAL LESION Description of the Procedure with informed consent the patient was taken to the operating room where general anesthesia was found to be adequate. She was prepped and draped in the usual sterile fashion in the dorsolithotomy position. The bladder was drained of clear yellow urine. The vulva was then inspected and the findings are listed below. The area surrounding the lesion was now injected with 0.5% Marcaine with epinephrine until a wheal was raised. I then made an elliptical incision. This was done at an angle at about the 4-5 o'clock position. The ellipse was 3 x 1 cm excising the entire lesion. The lesion extending slightly into the dermis but not into the subdermal tissue. I then closed the subdermal area with interrupted 3-0 vicryl stitches and then closed the area with interrupted stitches of 3-0 Vicryl 7 stitches were placed. There was good hemostasis. The patient was awakened and taken to recovery in stable condition. Findings of the Procedure 1X2 MM VASCULAR, BLUISH LESION ABOUT 2 CM FROM THE ANAL VERGE ON THE PERINEUM; EXTENSIVE LICHEN PLANUS Patient has long history of lichen planus, but has a new raised lesion on the perineum/anal area. This was concerning so was brought to the or for wide local excision. The lesion is raised, firm, bluish in appearance, appears to possibly be vascular (like a hemangioma) and is 1x2 mm. It is on the left of the perineum about 2 cm from the anal verge. There are no other lesions noted. She does have extensive lichen planus but no other concerning lesions. Allergies and Home Medications Allergies Coded Allergies: No Known Drug Allergies (Unverified , 12/21/08) Home Medications Aspirin 81 Mg Tab.chew, 81 MG PO DAILY, (Reported) Biotin 10,000 Mcg Capsule, 10,000 MCG PO DAILY, (Reported) Calcium Citrate/Vitamin D3 1 Each Tablet, 1 EACH PO DAILY, (Reported) Cholecalciferol (Vitamin D3) 1,000 Unit Tablet, 1,000 UNIT PO DAILY, (Reported) Estradiol 1 Mg Tablet, 1 MG PO DAILY, (Reported) Glucosamine Sulfate 2Kcl 1,000 Mg Tablet, 1,000 MG PO DAILY, (Reported) Hydrocodone/Acetaminophen 1 Each Tablet, 1 TAB PO Q4H PRN for PAIN-MODERATE Prescribed by: KEVEN HAMMER on 02/17/18825 Lactobacillus Rhamnosus GG 1 Each Capsule, 1 EACH PO DAILY, (Reported) Lutein/Zeaxanthin 1 Each Capsule, 1 EACH PO DAILY, (Reported) Lysine 1,000 Mg Tablet, 1,000 MG PO BID, (Reported) Meloxicam 7.5 Mg Tablet, 7.5 MG PO DAILY, (Reported) Multivitamin with Minerals 1 Each Tablet, 1 EACH PO DAILY, (Reported) [place]-3 Fatty Acids/Fish Oil 1 Each Capsule, 1 EACH PO DAILY, (Reported) [Benzocaine/Menthol] 56 ML AEROSOL, 1 SPRAY TP TID PRN for PAIN EXTERNAL USE ONLY Prescribed by: KEVEN HAMMER on 02/17/18825 Patient Home Medication List Home Medication List Reviewed: KEVEN Grady DO Feb 17, 2018 08:22
[2018-02-17] MEDS ORDERED: HYDR-4226 PO (08:26)
[2018-02-17] MEDS ORDERED: Benzocaine/Menthol TP (08:26)
--- NOTE | 2018-02-17 08:29 | Discharge Inst-Women's Service ---
Discharge Inst-Women's Serv Depart Medication/Instructions New, Converted or Re-Newed RX: RX on Chart Instructions keep stools soft (colace or other stool softeners) use moist wipe or spray bottle to clean (not dry tissue) dermoplast as needed for topical pain Final Diagnosis Lichen planus perianal lesion Consults/Follow Up Additional Follow Up: Yes (1 week for incision check, possible suture removal) Activity Activity: Activity as Tolerated Driving Instructions: No Driving for 24 Hours NO SMOKING: NO SMOKING Nothing Inside Vagina: No Douching, No [place], No Tampons Diet Discharge Diet: No Restrictions Symptoms to Report to : Bleeding Excessive, Pain Increased, Fever Over 101 Degrees F, Vaginal Bleeding Increase, Vaginal Discharge Foul For Any Problems or Questions: Contact Your Physician KEVEN HAMMER DO Feb 17, 2018 08:29
[2018-02-17] MEDS ORDERED: MEPERIDINE (DEMEROL) INJ 50 MG/ML IVP ONE (08:30)
[2018-02-17] MEDS ORDERED: fentaNYL INJECTION 100 MCG/2 ML AMP IVP ONE (08:30)
[2018-02-17] MEDS ORDERED: HYDROmorphone 2 MG/ML VIAL (DILAUDID) IV ONE (08:30)
[2018-02-17] MEDS ORDERED: KETOROLAC 30 MG/ML VIAL IVP ONE (08:30)
[2018-02-17] MEDS ORDERED: HYDROcodone/APAP 5 MG/325 MG (LORTAB) TAB PO PRN (08:30)
[2018-02-17] MEDS ORDERED: BENZOCAINE/MENTHOL (DERMOPLAST) 56 ML CAN TP PRN (08:30)
[2018-02-17] MEDS ORDERED: ONDANSETRON 4 MG/2 ML (SDV) Z0FRAN IVP PRN (08:30)
[2018-02-17 09:05] VITALS: BP 121/65
[2018-02-17 09:35] VITALS: BP 129/89
[2018-02-17 10:05] VITALS: BP 127/77
--- NOTE | 2018-02-17 10:46 | Anesthesia-General Post-Op ---
General Patient Condition Mental Status/LOC: Same as Preop Cardiovascular: Satisfactory Nausea/Vomiting: Absent Respiratory: Satisfactory Pain: Controlled Complications: Absent Post Op Complications Complications None Follow Up Care/Instructions Patient Instructions None needed. Anesthesia/Patient Condition Patient Condition Patient is doing well, no complaints, stable vital signs, no apparent adverse anesthesia problems. No complications reported per nursing. IRENE GOLDSMITH CRNA Feb 17, 2018 10:46
== END 2018-02-17 10:35 | disposition home or self-care (01) ==
LOC: SDC 06:31
PROVIDERS: ATTEND Obstetrics & Gynecology
DX: C44.510 Basal cell carcinoma of anal skin (principal); L43.8 Other lichen planus; Z87.891 Personal history of nicotine dependence; Z79.82 Long term (current) use of aspirin
CPT/HCPCS: 87081; 88305

== ENCOUNTER 2018-04-21 05:51 | Outpatient (CLI) | payer BC ==
[~2018-04-21] VITALS: Ht 160 cm; Wt 60.3 kg
[~2018-04-21 05:51] MED LIST changes: +Benzocaine/Menthol TP
[2018-04-21] MEDS ORDERED: PANT40TA2 PO (11:56)
== END 2018-04-21 11:57 | disposition home or self-care (01) ==
LOC: PREOP 05:51
PROVIDERS: ATTEND Surgery
DX: Z01.818 Encounter for other preprocedural examination (principal)

== ENCOUNTER 2018-04-28 07:58 | Day surgery (SDC) | payer BC ==
[~2018-04-28] VITALS: Ht 160 cm; Wt 60.3 kg
[~2018-04-28 07:58] MED LIST changes: +PANT40TA2 PO
--- OUTSIDE RECORDS SUMMARY | 2018-04-28 08:01 | XMS REPORT | Continuity of Care Document ---
Author Author [facility] Organization [facility] Address Unknown Phone Unavailable Allergies Active Description Code Type Severity Reaction Onset Reported/Identified Relationship to Patient Clinical Status Yes No Known Drug Allergies [id number] Drug Allergy Mild N/A 12/21/2008 Yes No Known Drug Allergies [id number] Drug Allergy Unknown N/A 04/21/2018 Medications There is no data. Problems Date Dx Coded Attending Type Code Diagnosis Diagnosed By 08/03/2013 TAMMIE THAKKAR MD Ot 272.4 HYPERLIPIDEMIA NEC/NOS 08/03/2013 TAMMIE THAKKAR MD Ot 401.9 HYPERTENSION NOS 08/03/2013 TAMMIE THAKKAR MD Ot 697.0 LICHEN PLANUS 08/03/2013 TAMMIE THAKKAR MD Ot 786.50 CHEST PAIN NOS 08/03/2013 TAMMIE THAKKAR MD Ot V15.82 HISTORY OF TOBACCO USE 08/03/2013 TAMMIE THAKKAR MD Ot V17.3 FAM HX-ISCHEM HEART DIS 04/05/2014 Ot 611.89 04/05/2014 Ot V76.12 04/05/2014 Ot 611.89 04/05/2014 Ot V76.12 03/29/2015 TEE HENDRIX APRN Ot F17.211 NICOTINE DEPENDENCE, CIGARETTES, IN SAAD 03/29/2015 TEE HENDRIX APRN Ot L43.9 LICHEN PLANUS, UNSPECIFIED 03/29/2015 ETE HENDRIX APRN Ot N94.9 UNSP COND ASSOC W FEMALE GENITAL ORGANS 03/29/2015 TEE HENDRIX APRN Ot Z79.899 OTHER NIGHT TIME NANNY (CURRENT) DRUG THERAPY 04/11/2015 KEVEN HAMMER DO Ot 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 04/11/2015 KEVEN HAMMER DO Ot N70.91 SALPINGITIS, UNSPECIFIED 04/11/2015 HAMMER DO, KEVEN C Ot N83.9 NONINFLAMMATORY DISORD OF OVARY, FALLOP 08/23/2015 HAMMER DO, KEVEN C Ot N94.89 08/23/2015 HAMMER DO, KEVEN C Ot Z01.818 08/23/2015 HAMMER DO, KEVEN C [...] BUSH MD Ot M54.16 RADICULOPATHY, LUMBAR REGION 05/28/2017 HAMMER DO, KEVEN C Ot N94.89 OTH COND ASSOC W FEMALE GENITAL ORGANS A 05/28/2017 HAMMER DO, KEVEN C Ot Z01.818 ENCOUNTER FOR OTHER PREPROCEDURAL EXAMIN 05/28/2017 HAMMER DO, KEVEN C Ot Z11.2 ENCOUNTER FOR SCREENING FOR OTHER BACTER 05/28/2017 NAVID BUSH MD Ot M54.16 RADICULOPATHY, LUMBAR REGION 05/29/2017 ALEJANDRA DO, LOTUS Ot E78.5 HYPERLIPIDEMIA, UNSPECIFIED 05/29/2017 ALEJANDRA DO, LOTUS Ot E87.6 HYPOKALEMIA 05/29/2017 JUSTYN FRASER, LOTUS Ot I47.1 SUPRAVENTRICULAR TACHYCARDIA 05/29/2017 JUSTYN FRASER LOTUS Ot J18.9 PNEUMONIA, UNSPECIFIED ORGANISM 05/29/2017 JUSTYN FRASER, LOTUS Ot Z87.891 PERSONAL HISTORY OF NICOTINE DEPENDENCE 05/29/2017 JUSTYN FRASER, LOTUS Ot Z90.710 ACQUIRED ABSENCE OF BOTH CERVIX AND UTER 05/30/2017 HAMMER DO, KEVEN C Ot N94.89 OTH COND ASSOC W FEMALE GENITAL ORGANS A 05/30/2017 HAMMER DO, KEVEN C Ot Z01.818 ENCOUNTER FOR OTHER PREPROCEDURAL EXAMIN 05/30/2017 HAMMER DO, KEVEN C Ot Z11.2 ENCOUNTER FOR SCREENING FOR OTHER BACTER 05/30/2017 NAVID BUSH MD Ot M54.16 RADICULOPATHY, LUMBAR REGION 07/21/2017 HAMMER DO, KEVEN C Ot N94.89 OTH COND ASSOC W FEMALE GENITAL ORGANS A 07/21/2017 HAMMER DO, KEVEN C Ot Z01.818 ENCOUNTER FOR OTHER PREPROCEDURAL EXAMIN 07/21/2017 HAMMER DO, KEVEN C Ot Z11.2 ENCOUNTER FOR SCREENING FOR OTHER BACTER 07/21/2017 NAVID BUSH MD Ot M54.16 RADICULOPATHY, LUMBAR REGION 08/12/2017 HAMMER DO, KEVEN C Ot N94.89 OTH COND ASSOC W FEMALE GENITAL ORGANS A 08/12/2017 HAMMER DO, KEVEN C Ot Z01.818 ENCOUNTER FOR OTHER PREPROCEDURAL EXAMIN 08/12/2017 HAMMER DO, KEVEN C Ot Z11.2 ENCOUNTER FOR SCREENING FOR OTHER BACTER 08/12/2017 NAVID BUSH MD Ot M54.16 RADICULOPATHY, LUMBAR REGION 10/30/2017 HAMMER DO, KEVEN C Ot N94.89 OTH COND ASSOC W FEMALE GENITAL ORGANS A 10/30/2017 HAMMER DO, KEVEN C Ot Z01.818 ENCOUNTER FOR OTHER PREPROCEDURAL EXAMIN 10/30/2017 HAMMER DO, KEVEN C Ot Z11.2 ENCOUNTER FOR SCREENING FOR OTHER BACTER 10/30/2017 NAVID BUSH MD Ot M54.16 RADICULOPATHY, LUMBAR REGION 02/07/2018 MAX BRYNAT Ot Z12.31 ENCNTR SCREEN MAMMOGRAM FOR MALIGNANT NE 02/12/2018 HAMMER DO, KEVEN C Ot Z01.818 ENCOUNTER FOR OTHER PREPROCEDURAL EXAMIN 02/12/2018 HAMMER DO, KEVEN C Ot Z01.818 ENCOUNTER FOR OTHER PREPROCEDURAL EXAMIN 02/12/2018 HAMMER DO, KEVEN C Ot Z01.818 ENCOUNTER FOR OTHER PREPROCEDURAL EXAMIN 02/17/2018 HAMMER DO, KEVEN C Ot C44.510 BASAL CELL CARCINOMA OF ANAL SKIN 02/17/2018 HAMMER DO, KEVEN C Ot L43.8 OTHER LICHEN PLANUS 02/17/2018 HAMMER DO, KEVEN C Ot Z79.82 NIGHT TIME NANNY (CURRENT) USE OF ASPIRIN 02/17/2018 HAMMER DO, EKVEN C Ot Z87.891 PERSONAL HISTORY OF NICOTINE DEPENDENCE 02/18/2018 MAX BRYANT Ot Z12.31 ENCNTR SCREEN MAMMOGRAM FOR MALIGNANT NE 03/16/2018 HAMMER DO, KEVEN C Ot C44.510 BASAL CELL CARCINOMA OF ANAL SKIN 03/16/2018 HAMMER DO, KEVEN C Ot L43.8 OTHER LICHEN PLANUS 03/16/2018 HAMMER DO, KEVEN C Ot Z79.82 RETIREMENT (CURRENT) USE OF ASPIRIN 03/16/2018 HAMMER DO, KEVEN C Ot Z87.891 PERSONAL HISTORY OF NICOTINE DEPENDENCE 04/21/2018 SAKINA CARR DO Ot Z01.818 ENCOUNTER FOR OTHER PREPROCEDURAL EXAMIN Procedures There is no data. Results Test Result Range Complete blood count (CBC) with automated white blood cell (WBC) differential - 05/28/17 12:09 Blood leukocytes automated count (number/volume) 18.2 10*3/uL 4.3-11.0 Blood erythrocytes automated count (number/volume) 5.14 10*6/uL 4.35-5.85 Venous blood hemoglobin measurement (mass/volume) 15.4 g/dL 11.5-16.0 Blood hematocrit (volume fraction) 45 % 35-52 Automated erythrocyte mean corpuscular volume 87 [foz_us] 80-99 Automated erythrocyte mean corpuscular hemoglobin (mass per erythrocyte) 30 pg 25-34 Automated erythrocyte mean corpuscular hemoglobin concentration measurement ( mass/volume) 35 g/dL 32-36 Automated erythrocyte distribution width ratio 13.0 % 10.0-14.5 Automated blood platelet count (count/volume) 349 10*3/uL 130-400 Automated blood platelet mean volume measurement 11.1 [foz_us] 7.4-10.4 Automated blood neutrophils/100 leukocytes 80 % 42-75 Automated blood lymphocytes/100 leukocytes 11 % 12-44 Blood monocytes/100 leukocytes 8 % 0-12 Automated blood eosinophils/100 leukocytes 0 % 0-10 Automated blood basophils/100 leukocytes 0 % 0-10 Blood neutrophils automated count (number/volume) 14.7 10*3 1.8-7.8 Blood lymphocytes automated count (number/volume) 2.1 10*3 1.0-4.0 Blood monocytes automated count (number/volume) 1.4 10*3 0.0-1.0 Automated eosinophil count 0.1 10*3/uL 0.0-0.3 Automated blood basophil count (count/volume) 0.0 10*3/uL 0.0-0.1 Comprehensive metabolic panel - 05/28/17 12:09 Serum or plasma sodium measurement (moles/volume) 140 mmol/L 135-145 Serum or plasma potassium measurement (moles/volume) 3.3 mmol/L 3.6-5.0 Serum or plasma chloride measurement (moles/volume) 102 mmol/L 98-107 Carbon dioxide 25 mmol/L 21-32 Serum or plasma anion gap determination (moles/volume) 13 mmol/L 5-14 Serum or plasma urea nitrogen measurement (mass/volume) 12 mg/dL 7-18 Serum or plasma creatinine measurement (mass/volume) 0.84 mg/dL 0.60-1.30 Serum or plasma urea nitrogen/creatinine mass ratio 14 NRG Serum or plasma creatinine measurement with calculation of estimated glomerular filtration rate > NRG Serum or plasma glucose measurement (mass/volume) 131 mg/dL 70-105 Serum or plasma calcium measurement (mass/volume) 9.5 mg/dL 8.5-10.1 Serum or plasma total bilirubin measurement (mass/volume) 0.5 mg/dL 0.1-1.0 Serum or plasma alkaline phosphatase measurement (enzymatic activity/volume) 65 U/L 40-136 Serum or plasma aspartate aminotransferase measurement (enzymatic activity/ volume) 20 U/L 5-34 Serum or plasma alanine aminotransferase measurement (enzymatic activity/volume ) 21 U/L 0-55 Serum or plasma protein measurement (mass/volume) 8.2 g/dL 6.4-8.2 Serum or plasma albumin measurement (mass/volume) 4.4 g/dL 3.2-4.5 Magnesium - 05/28/17 12:09 Magnesium 2.2 mg/dL 1.8-2.4 PT panel in platelet poor plasma by coagulation assay - 05/28/17 12:09 Prothrombin time (PT) in platelet poor plasma by coagulation assay 12.6 s 12.2-14.7 INR in platelet poor plasma or blood by coagulation assay 0.9 0.8-1.4 Activated partial thromboplastin time (aPTT) in platelet poor plasma bycoagulation assay - 05/28/17 12:09 Activated partial thromboplastin time (aPTT) in platelet poor plasma bycoagulation assay 32 s 24-35 Serum or plasma troponin i.cardiac measurement (mass/volume) - 05/28/17 12:09 Serum or plasma troponin i.cardiac measurement (mass/volume) < ng/ mL <0.30 Blood manual differential performed detection - 05/28/17 12:09 Blood monocytes/100 leukocytes 7 % NRG Manual blood segmented neutrophils/100 leukocytes 80 % NRG Blood band neutrophils/100 leukocytes 2 % NRG Manual blood lymphocytes/100 leukocytes 3 % NRG Manual eosinophils/100 leukocytes in nose 3 % NRG Manual blood basophils/100 leukocytes 0 % NRG Blood lymphocytes variant/100 leukocytes 5 % NRG Blood toxic granules detection by light microscopy 2+ NRG Blood poikilocytosis detection by light microscopy SLIGHT NRG Blood rouleaux detection by light microscopy SLIGHT NRG Blood stomatocytes detection by light microscopy SLIGHT NRG Blood platelet clump detection by light microscopy SLIGHT NRG Serum or plasma thyrotropin measurement by detection limit <=0.05 miu/l (units/ volume) - 05/28/17 12:09 Serum or plasma thyrotropin measurement by detection limit <=0.05 miu/l (units/ volume) 1.11 u[iU]/mL 0.35-4.94 Serum or plasma lithium measurement (moles/volume) - 05/28/17 12:09 BNP level 57.3 pg/mL <100.0 Influenza virus A and B antigen detection - 05/28/17 12:11 FLU RESULT NEGATIVE FOR INFLUENZA A AND B ANTIGENS BY IA [facility] Blood lactic acid measurement (moles/volume) - 05/28/17 13:25 Blood lactic acid measurement (moles/volume) 1.48 mmol/L 0.50-2.00 Bacterial blood culture - 05/28/17 13:25 QUANTITY OF GROWTH . NRG Bacterial blood culture SEE COMMEN NRG Bacterial blood culture - 05/28/17 13:36 Bacterial blood culture NG NR Blood lactic acid measurement (moles/volume) - 05/28/17 17:40 Blood lactic acid measurement (moles/volume) 0.94 mmol/L 0.50-2.00 Bacterial blood culture - 05/28/17 17:40 Bacterial blood culture NG NRG Bacterial blood culture - 05/28/17 17:50 Bacterial blood culture NG [facility] Complete blood count (CBC) with automated white blood cell (WBC) differential - 05/29/17 04:45 Blood leukocytes automated count (number/volume) 11.7 10*3/uL 4.3-11.0 Blood erythrocytes automated count (number/volume) 3.90 10*6/uL 4.35-5.85 Venous blood hemoglobin measurement (mass/volume) 11.7 g/dL 11.5-16.0 Blood hematocrit (volume fraction) 35 % 35-52 Automated erythrocyte mean corpuscular volume 89 [foz_us] 80-99 Automated erythrocyte mean corpuscular hemoglobin (mass per erythrocyte) 30 pg 25-34 Automated erythrocyte mean corpuscular hemoglobin concentration measurement ( mass/volume) 34 g/dL 32-36 Automated erythrocyte distribution width ratio 13.3 % 10.0-14.5 Automated blood platelet count (count/volume) 237 10*3/uL 130-400 Automated blood platelet mean volume measurement 11.0 [foz_us] 7.4-10.4 Automated blood neutrophils/100 leukocytes 74 % 42-75 Automated blood lymphocytes/100 leukocytes 16 % 12-44 Blood monocytes/100 leukocytes 10 % 0-12 Automated blood eosinophils/100 leukocytes 0 % 0-10 Automated blood basophils/100 leukocytes 0 % 0-10 Blood neutrophils automated count (number/volume) 8.6 10*3 1.8-7.8 Blood lymphocytes automated count (number/volume) 1.8 10*3 1.0-4.0 Blood monocytes automated count (number/volume) 1.2 10*3 0.0-1.0 Automated eosinophil count 0.0 10*3/uL 0.0-0.3 Automated blood basophil count (count/volume) 0.0 10*3/uL 0.0-0.1 Comprehensive metabolic panel - 05/29/17 04:45 Serum or plasma sodium measurement (moles/volume) 141 mmol/L 135-145 Serum or plasma potassium measurement (moles/volume) 4.2 mmol/L 3.6-5.0 Serum or plasma chloride measurement (moles/volume) 111 mmol/L 98-107 Carbon dioxide 21 mmol/L 21-32 Serum or plasma anion gap determination (moles/volume) 9 mmol/L 5-14 Serum or plasma urea nitrogen measurement (mass/volume) 13 mg/dL 7-18 Serum or plasma creatinine measurement (mass/volume) 0.75 mg/dL 0.60-1.30 Serum or plasma urea nitrogen/creatinine mass ratio 17 NRG Serum or plasma creatinine measurement with calculation of estimated glomerular filtration rate > NRG Serum or plasma glucose measurement (mass/volume) 100 mg/dL 70-105 Serum or plasma calcium measurement (mass/volume) 8.2 mg/dL 8.5-10.1 Serum or plasma total bilirubin measurement (mass/volume) 0.6 mg/dL 0.1-1.0 Serum or plasma alkaline phosphatase measurement (enzymatic activity/volume) 44 U/L 40-136 Serum or plasma aspartate aminotransferase measurement (enzymatic activity/ volume) 20 U/L 5-34 Serum or plasma alanine aminotransferase measurement (enzymatic activity/volume ) 25 U/L 0-55 Serum or plasma protein measurement (mass/volume) 5.7 g/dL 6.4-8.2 Serum or plasma albumin measurement (mass/volume) 3.1 g/dL 3.2-4.5 Magnesium - 05/29/17 04:45 Magnesium 2.1 mg/dL 1.8-2.4 Lipid 1996 panel - 05/29/17 04:45 Serum or plasma triglyceride measurement (mass/volume) 83 mg/dL <150 Serum or plasma cholesterol measurement (mass/volume) 169 mg/dL < 200 Serum or plasma cholesterol in HDL measurement (mass/volume) 45 mg/ dL 40-60 Cholesterol in LDL [mass/volume] in serum or plasma by direct assay 111 mg/dL 1-129 Serum or plasma cholesterol in VLDL measurement (mass/volume) 17 mg/ dL 5-40 Methicillin resistant Staphylococcus aureus (MRSA) screening culture - 06:58 Methicillin resistant Staphylococcus aureus (MRSA) screening culture NEG NRG Encounters ACCT No. Visit Date/Time Discharge Status Pt. Type Provider Facility Loc./Unit Complaint [id number] 04/21/2018 05:51:00 04/21/2018 11:57:00 DIS Outpatient SAKINA CARR DO [facility] PREOP COLONOSCOPY [id number] 02/17/2018 06:31:00 02/17/2018 10:35:00 [facility] [id number] 02/12/2018 12:33:00 02/12/2018 12:57:00 DIS Outpatient KEVEN HAMMER DO [facility] PREOP PERINEAL LESION [id number] 02/05/2018 13:34:00 02/05/2018 23:59:59 CLS Outpatient MAX BRYANT [facility] RAD SCREENING [id number] 05/28/2017 13:20:00 05/29/2017 12:45:00 DIS Inpatient LOTUS ALEJANDRA DO [facility] ICU SVT;PNEUMONIA [id number] 12/13/2015 11:31:00 12/13/2015 23:59:59 CLS Outpatient NAVID BUSH MD [facility] RAD LUMBAR RADICULOPATHY [id number] 04/11/2015 08:15:00 04/11/2015 14:50:00 DIS Outpatient KEVEN HAMMER DO [facility] SDC ADNEXIA CYST [id number] 04/04/2015 07:59:00 04/04/2015 23:59:59 CLS Outpatient KEVEN HAMMER DO [facility] PREOP ADNEXIA CYST [id number] 03/29/2015 20:29:00 03/29/2015 23:28:00 DIS Emergency TEE HENDRIX APRN [facility] ER LOWER ABD/BACK PAIN [id number] 01/18/2014 10:22:00 01/18/2014 23:59:59 CLS Outpatient [id number] 08/03/2013 11:31:00 08/03/2013 16:00:00 DIS Inpatient BIJAN WESLEY, TAMMIE Kerns [facility] CSD L CHEST ARM PAIN [id number] 02/01/2013 11:44:00 02/01/2013 23:59:59 CLS Outpatient [id number] 01/25/2013 12:19:00 01/25/2013 23:59:59 CLS Outpatient [id number] 10/29/2012 07:26:00 10/29/2012 23:59:59 CLS Outpatient [id number] 09/05/2012 14:50:00 09/05/2012 23:59:59 CLS Outpatient [id number] 04/28/2018 08:00:00 PEN Preadmit SAKINA CARR DO [facility] ENDO SCREENING/EPIGASTRIC ABD PAIN [id number] 04/05/2014 08:23:00 Document Registration [id number] 08/06/2010 08:52:00 Document Registration [id number] 04/17/2009 13:04:00 Document Registration [id number] 04/11/2009 07:43:00 Document Registration
[2018-04-28] MEDS ORDERED: LACTATED RINGERS 1,000 ML IV STA (08:08)
[2018-04-28] MEDS ORDERED: LACTATED RINGERS 1,000 ML IV ONE (08:09)
[2018-04-28] MEDS ORDERED: HURRICAINE EXT TUBE (BENZOCAINE) XX PRN (08:15)
[2018-04-28] MEDS ORDERED: MELO7.5T46 PO (08:24)
[2018-04-28 08:25] VITALS: BP 119/72
[2018-04-28] MEDS ORDERED: HURRICAINE EXT TUBE (BENZOCAINE) ONE (09:17)
[2018-04-28] MEDS ORDERED: PROPOFOL INJECTION 50 ML IV ONE (09:22)
--- NOTE | 2018-04-28 09:58 | Progress Note-Post Operative ---
Post-Operative Progess Note Surgeon (s)/Wheel Press Operator (s) Surgeon SAKINA CARR DO Wheel Press Operator: na Pre-Operative Diagnosis epigastric abdomianl pain, screening colon Post-Operative Diagnosis healing antral ulcer, diverticulosis Procedure & Operative Findings Date of Procedure 04/28/18 Procedure Performed/Findings egd c biopsies colonoscopy Anesthesia Type per patient financial services specialist Estimated Blood Loss Estimated blood loss (mL): none Specimens/Packing Specimens Removed antrum SAKINA CARR DO Apr 28, 2018 09:58
[2018-04-28] MEDS ORDERED: SUCR1TAB36 PO (09:59)
--- NOTE | 2018-04-28 09:59 | Discharge Inst-Simple/Standard ---
Discharge Inst-Standard Discharge Medications New, Converted or Re-Newed RX: Transmitted to Pharmacy Patient Instructions/Follow Up Plan of Care/Instructions/FU: 3 weeks Alana Activity as Tolerated: Yes Discharge Diet: Regular Diet (ulcer diet) SAKINA CARR DO Apr 28, 2018 09:59
[2018-04-28 10:15] VITALS: BP 137/81
[2018-04-28 10:45] VITALS: BP 123/67
[2018-04-28 11:00] VITALS: BP 123/67
--- NOTE | 2018-04-28 13:32 | OPERATIVE REPORT ---
DATE OF SERVICE: 04/28/2018 PREOPERATIVE DIAGNOSIS: Epigastric abdominal pain, screening colonoscopy. POSTOPERATIVE DIAGNOSES: Healing antral ulcer and diverticulosis. PROCEDURE: EGD with biopsies, colonoscopy. SURGEON: Sakina Warner DO ANESTHESIA: Per SEED LABORATORY ASSISTANT. ESTIMATED BLOOD LOSS: None. COMPLICATIONS: None. INDICATIONS: The patient is a 62-year-old female due for screening colonoscopy. She also has been having epigastric abdominal pain. She understands risks and benefits of procedure and wished to proceed with procedure. Consent was signed on the chart. DESCRIPTION OF PROCEDURE: The patient was taken to the endoscopy suite, placed in left lateral recumbent position. Timeout was performed. Scope was inserted in mouth, down the esophagus, stomach and into the duodenum without difficulty. There were no polyps, mass or ulceration within the duodenum. Scope was slowly retracted back into the stomach, which was further insufflated. In the antrum, the appearance of a healing ulcer was present. Biopsy of the antrum was obtained. Scope was retroflexed noting no other pathology. Scope was returned to its normal position, slowly withdrawn to the distal esophagus, which had normal appearance. Scope was slowly retracted back to completely remove, noting no other pathology. Digital rectal exam was performed. No palpable polyps, masses or ulcerations. Scope was inserted in the rectum and advanced all the way to the cecum with minimal difficulty. Prep was adequate. Scope was then slowly retracted back. No polyps, mass or ulceration within the cecum, ascending, transverse, descending and sigmoid colon. A minimal amount of diverticulosis present within the sigmoid colon. Scope was retracted back to the rectum, where it was also retroflexed noting no other pathology. RECOMMENDATIONS: The patient will be continued on Protonix 40 mg daily. We will add Carafate 1 gram four times a day. The patient with family history of colon cancer; would recommend repeat colonoscopy in 5 years. If she has any problems prior to that, she should be reevaluated at that time. I will have her follow up in the office in two weeks to discuss. Job ID: [id number] DocumentID: [id number] Dictated Date: 04/28/2018 10:02:28 Electrical Sign Wirer Date: 04/28/2018 13:31:41 Dictated By: SAKINA WARNER DO
--- NOTE | 2018-04-28 14:34 | Anesthesia-General Post-Op ---
MAC Patient Condition Mental Status/LOC: Same as Preop Cardiovascular: Satisfactory Nausea/Vomiting: Absent Respiratory: Satisfactory Pain: Controlled Complications: Absent Post Op Complications Complications None Follow Up Care/Instructions Patient Instructions None needed. Anesthesiology Discharge Order Discharge Order Patient is doing well, no complaints, stable vital signs, no apparent adverse anesthesia problems. No complications reported per nursing. IRENE GOLDSMITH CRNA Apr 28, 2018 14:34
== END 2018-04-28 11:00 | disposition home or self-care (01) ==
LOC: ENDO 07:58
PROVIDERS: ATTEND Surgery
DX: Z12.11 Encounter for screening for malignant neoplasm of colon (principal); K57.30 Diverticulosis of large intestine without perforation or abscess without bleeding; K25.7 Chronic gastric ulcer without hemorrhage or perforation; Z79.82 Long term (current) use of aspirin

== ENCOUNTER → 2018-05-22 | Outpatient (CLI) | payer BC ==
[~2018-05-22] MED LIST changes: +SUCR1TAB36 PO
--- NOTE | 2018-05-22 07:58 | Diagnostic Imaging Report ---
PROCEDURE: US Gallbladder. TECHNIQUE: Multiple real-time grayscale images were obtained over the right upper quadrant in various projections. INDICATION: Epigastric pain. Liver parenchyma is homogeneous with normal echotexture. Gallbladder is clear with no stones or wall thickening. Common duct is not dilated. Visualized portions of the pancreas appear normal. Right kidney appears normal, 11.1 cm in length. There is no ascites. IMPRESSION: Negative gallbladder sonogram. Dictated by: Dictated on workstation # [id number]
== END ==
LOC: RAD 06:47
PROVIDERS: ATTEND Surgery
DX: R10.13 Epigastric pain (principal)
CPT/HCPCS: 76705

== ENCOUNTER → 2018-05-28 | Outpatient (CLI) | payer BC ==
[~2018-05-28] MED LIST changes: +CATHETER FLUSH 10 ML SYR IV PRN
--- NOTE | 2018-05-28 13:38 | Diagnostic Imaging Report ---
INDICATION: Epigastric pain. TECHNIQUE: Patient was administered 5.0 mCi technetium 99m Choletec intravenously and imaging over the abdomen was performed. At one hour, patient ingested 8 ounces of Ensure and a gallbladder ejection fraction was calculated. FINDINGS: There is homogeneous uptake of activity by the liver with prompt excretion of activity into the common duct and gallbladder. There is normal passage of activity into the small bowel. Gallbladder ejection fraction is abnormally low at 6%. Normal values are 33% or greater. IMPRESSION: 1. No evidence of cystic duct or common bile duct obstruction. 2. Abnormally low gallbladder ejection fraction of 6%. Dictated by: Dictated on workstation # [id number]
== END ==
LOC: CARD 09:35
PROVIDERS: ATTEND Surgery
DX: R10.13 Epigastric pain (principal)
CPT/HCPCS: 78227

== ENCOUNTER 2018-06-29 15:37 | Outpatient (CLI) | payer BC ==
[~2018-06-29] VITALS: Ht 160 cm; Wt 60.3 kg
== END 2018-06-29 15:42 | disposition home or self-care (01) ==
LOC: PREOP 15:37
PROVIDERS: ATTEND Surgery
DX: Z01.818 Encounter for other preprocedural examination (principal)

== ENCOUNTER 2018-07-02 07:44 | Day surgery (SDC) | payer BC ==
[2018-07-01 12:02] VITALS: BP 122/67
[~2018-07-02] VITALS: Ht 160 cm; Wt 60.3 kg
[~2018-07-02 07:44] MED LIST changes: -CATHETER FLUSH 10 ML SYR IV PRN; +MAGN250T13 PO
[2018-07-02] MEDS ORDERED: LACTATED RINGERS 1,000 ML IV PRN (08:15)
[2018-07-02] MEDS ORDERED: ceFAZolin INJECTION 1,000 MG in NS (IVPB) 50 ML IV ONE (08:15)
[2018-07-02 08:20] VITALS: BP 129/80
[2018-07-02] MEDS ORDERED: ceFAZolin 1,000 MG/SWFI 10 ML IV PUSH IV ONE ×2 (08:30)
[2018-07-02] MEDS ORDERED: GLYCOPYRROLATE 0.2 MG/ML (ROBINUL) 2 ML VIAL ONE (09:00)
[2018-07-02] MEDS ORDERED: SEVOFLURANE (ULTANE) 15 ML INHAL SOLN ONE (09:00)
[2018-07-02] MEDS ORDERED: LIDOCAINE PF 2% 5 ML (XYLOCAINE) VIAL ONE (09:00)
[2018-07-02] MEDS ORDERED: NEOSTIGMINE 1 MG/ML 5 ML SYRINGE ONE (09:00)
[2018-07-02] MEDS ORDERED: BUP/EPI 0.5% 1:200,000 (SENSORCAINE) 30 ML VIAL ONE (09:00)
[2018-07-02] MEDS ORDERED: DEXAMETHASONE 10 MG/ML (DECADRON) 1 ML VIAL ONE (09:00)
[2018-07-02] MEDS ORDERED: proPOfol 200 MG/20 ML (DIPRIVAN) VIAL IV ONE (09:00)
[2018-07-02] MEDS ORDERED: ONDANSETRON 4 MG/2 ML (SDV) Z0FRAN ONE (09:00)
[2018-07-02] MEDS ORDERED: ROCURONIUM 10 MG/ML 5 ML SYRINGE IV ONE (09:00)
[2018-07-02] MEDS ORDERED: fentaNYL INJECTION 100 MCG/2 ML AMP ONE ×2 (09:01→10:11)
[2018-07-02] MEDS ORDERED: LIDOCAINE 1% INJ 20 ML 20 ML VIAL ONE (09:01)
[2018-07-02] MEDS ORDERED: MIDAZOLAM 2 MG/2 ML (VERSED) VIAL ONE (09:01)
--- NOTE | 2018-07-02 09:31 | Progress Note-Pre Operative ---
Pre-Operative Progress Note H&P Reviewed The H&P was reviewed, patient examined and no changes noted. Date Seen by Provider: Jul 02, 2018 Time Seen by Provider: : Date H&P Reviewed: Jul 02, 2018 Time H&P Reviewed: 09:30 Pre-Operative Diagnosis: epigastric abdominal pain, biliary dyskinesia SAKINA CARR DO Jul 02, 2018 09:30
[2018-07-02] MEDS ORDERED: IOHEXOL 300 MG/ML 30 ML (OMNIPAQUE 300) VIAL IV ONE (10:30)
[2018-07-02] MEDS ORDERED: PHENYLEPHRINE 100 MCG/ML 10 ML (ANESTHESIA) SYR ONE (10:30)
--- NOTE | 2018-07-02 10:33 | Progress Note-Post Operative ---
Post-Operative Progess Note Surgeon (s)/Pile Driver Operator Barge Mounted (s) Surgeon SAKINA CARR DO Pile Driver Operator Barge Mounted: Dr. Kilpatrick Pre-Operative Diagnosis epigastric abdominal pain, biliary dyskinesia Post-Operative Diagnosis same Procedure & Operative Findings Date of Procedure 07/02/18 Procedure Performed/Findings lap ricardo c ioc Anesthesia Type gen Estimated Blood Loss Estimated blood loss (mL): min Specimens/Packing Specimens Removed gallbladder SAKINA CARR DO Jul 02, 2018 10:33
[2018-07-02] MEDS ORDERED: ACHD5005 PO (10:34)
--- NOTE | 2018-07-02 10:36 | Discharge Inst-Simple/Standard ---
Discharge Inst-Standard Discharge Medications New, Converted or Re-Newed RX: RX on Chart Patient Instructions/Follow Up Plan of Care/Instructions/FU: 2 weeks Alana Activity as Tolerated: No Discharge Diet: Regular Diet Other Inst to Patient Follow up Appt: Make appointment for 2 weeks. Instructions: No lifting greater than 10 pounds. No strenuous activity. May shower in 24 hours, no tub bath or soaking. Use incentive spirometer at home as directed. No Smoking Skin/Wound Care: You have special glue over incision it will fall off on its own. Symptoms to Report: Appetite Changes, Extremity Discoloration, Numbness/Tingling, Swelling Increased , Bleeding Excessive, Eyesight Changes, Pain Increased, Urine Color Change, Constipation(Persistent), Fever over 101 degree F, Pain/Pressure in chest, Urinating Difficulty, Cough Up/Vomit Blood, Heart Beat Irreg/Pounding, Pain/ Pressure in jaw, Vaginal Bleeding Increase, Cramps in feet or legs, Lightheadedness, Pain/Pressure in shoulder, Diarrhea(Persistent), Memory Changes Suddenly, Questions/Concerns, Weight gain consecutive days, Dizziness/ Fainting, Nausea/Vomiting, Shortness of Breath, Weight gain over 2 pounds. If eyes or skin turn yellow notify physician. If questions or concerns contact your physician Or seek help at emergency department. SAKINA CARR DO Jul 02, 2018 10:36
[2018-07-02] MEDS ORDERED: ONDANSETRON 4 MG/2 ML (SDV) Z0FRAN IVP PRN (11:00)
[2018-07-02] MEDS ORDERED: HYDROmorphone 2 MG/ML VIAL (DILAUDID) IV ONE (11:00)
[2018-07-02 12:15] VITALS: BP 108/65
--- NOTE | 2018-07-02 12:16 | Diagnostic Imaging Report ---
Indication: Fluoroscopy during intraoperative cholangiogram. Low gallbladder ejection fraction of 6%. Fluoroscopy was provided for Dr. Warner during intraoperative cholangiogram. 33 seconds of fluoroscopy was utilized. Only single image was submitted showing contrast in the common duct and duodenum. No filling defect is seen. Impression: Fluoroscopy for intraoperative cholangiogram. Dictated by: Dictated on workstation # [id number]
[2018-07-02 12:45] VITALS: BP 113/63
[2018-07-02 13:10] VITALS: BP 113/63
--- NOTE | 2018-07-02 16:17 | Anesthesia-General Post-Op ---
General Patient Condition Mental Status/LOC: Same as Preop Cardiovascular: Satisfactory Nausea/Vomiting: Absent Respiratory: Satisfactory Pain: Controlled Complications: Absent Post Op Complications Complications None Follow Up Care/Instructions Patient Instructions None needed. Anesthesia/Patient Condition Patient Condition Patient was seen after the procedure and she was doing well, no complaints, stable vital signs, no apparent adverse anesthesia problems. MYRON ROSS DO Jul 02, 2018 16:17
--- NOTE | 2018-07-02 18:38 | OPERATIVE REPORT ---
DATE OF SERVICE: 07/02/2018 PREOPERATIVE DIAGNOSES: Epigastric abdominal pain, biliary dyskinesia. POSTOPERATIVE DIAGNOSES: Epigastric abdominal pain, biliary dyskinesia. PROCEDURE PERFORMED: Laparoscopic cholecystectomy with intraoperative cholangiogram. SURGEON: Sakina Warner DO. FIELD SERVICES MANAGER: Seamus Kilpatrick DO, assisted in retraction, dissection and closure. ANESTHESIA: General. ESTIMATED BLOOD LOSS: Minimal. COMPLICATIONS: None. INDICATIONS: The patient is a 62-year-old female with biliary dyskinesia. She understands risks and benefits of procedure and wished to proceed with procedure. Consent was signed in the chart. DESCRIPTION OF PROCEDURE: The patient was taken to the operating suite. She was prepped and draped in sterile fashion. Surgical pause was performed. A 12 mm incision made just above the umbilicus, dissection was taken down with cautery down to the fascia, which was then scored, grasped with Kochers and then the abdomen was entered. An #0 Vicryl was placed in a [id number] fashion for closure at the end of the case. A balloon trocar was inserted in the abdomen and pneumoperitoneum was achieved. Under direct visualization of the laparoscope, a 5 mm trocar was placed in the subxiphoid region and two 5 mm trocars were placed in the right upper quadrant. The gallbladder was grasped began to be elevated. The duodenum was stuck up to the gallbladder, which had to be bluntly taken down and adhesions were taken down with both blunt and cautery dissection. The cystic duct and cystic artery were then dissected out. Clips were placed on the proximal and distal portion of the cystic artery. A clip was placed on the distal portion of the cystic duct and cystic duct was then partially transected. Catheter was inserted into the duct and a clip was placed on the duct. A cholangiogram was then performed. There were no filling defects. Contrast made its way into the duodenum without difficulty. The scope was removed. The catheter was removed. The clips were placed on the proximal portion of the cystic duct and the cystic duct and cystic artery were then completely transected. Hook cautery was used to dissect the gallbladder from gallbladder fossa achieving hemostasis. Once removed, it was placed in an Endobag and removed through the 12 mm trocar site. Copious amounts of irrigation was used to irrigate and suction. The trocars were removed. Hemostasis had been achieved. The 12 mm fascial defect was then closed using the previously placed #0 Vicryl. Skin was then closed with 4-0 Monocryl. The abdomen was then washed and dried and Skin Affix was placed over the incisions. The patient tolerated the procedure well without complication. She was taken to recovery room in stable condition. Job ID: [id number] DocumentID: [id number] Dictated Date: 07/02/2018 13:18:16 Staffing Operations Manager Date: 07/02/2018 18:37:50 Dictated By: SAKINA WARNER DO
== END 2018-07-02 13:10 | disposition home or self-care (01) ==
LOC: SDC 07:44
PROVIDERS: ATTEND Surgery
DX: K81.1 Chronic cholecystitis (principal); I47.1 Supraventricular tachycardia; L43.9 Lichen planus, unspecified; Z87.891 Personal history of nicotine dependence; Z79.82 Long term (current) use of aspirin; Z79.899 Other long term (current) drug therapy
CPT/HCPCS: 87081; 94664

== ENCOUNTER → 2019-04-30 | Outpatient (CLI) | payer BC ==
[~2019-04-30] MED LIST changes: +ACHD5005 PO; +[UNRECOGNIZED DRUG - CODE] PO; -[UNRECOGNIZED DRUG - CODE] PO
--- NOTE | 2019-04-30 11:18 | Diagnostic Imaging Report ---
INDICATION: Routine screening. Comparison is made with prior mammograms from 02/05/2018 and 10/29/2012. 2-D and 3-D bilateral screening mammography was performed. The current study was also evaluated with a Computer Aided Detection (CAD) system. 3-D tomosynthesis was also performed and reviewed. FINDINGS: Both breasts are heterogeneously dense, limiting the sensitivity of mammography. The parenchymal pattern is stable. No dominant mass or malignant-appearing microcalcifications are seen. There are benign calcifications. Axillae are unremarkable. IMPRESSION: No mammographic features suspicious for malignancy are identified. ACR BI-RADS Category 2: Benign findings. Result letter will be mailed to the patient. Note: At least 10% of breast cancer is not imaged by mammography. Dictated by: Dictated on workstation # [id number]
== END ==
LOC: RAD 07:54
PROVIDERS: ATTEND Nurse Practitioner
DX: Z12.31 Encounter for screening mammogram for malignant neoplasm of breast (principal)
CPT/HCPCS: 77067

== ENCOUNTER → 2020-08-25 | Outpatient (CLI) | payer MEDICARE, OTHER ==
[~2020-08-25] MED LIST changes: -FOLI1TAB24 PO; +FOLI1TAB33 PO; -METO-370 PO; +METO50TA7 PO
--- NOTE | 2020-08-25 09:58 | Diagnostic Imaging Report ---
INDICATION: Routine screening. Comparison is made to prior mammogram from 04/30/2019 and 02/05/2018. 2-D and 3-D bilateral screening mammography was performed with CAD. Both breasts are heterogeneously dense, limiting sensitivity of mammography. No mass or malignant appearing microcalcifications are seen. Axillae are unremarkable. IMPRESSION: BI-RADS Category 1 No mammographic features suspicious for malignancy are identified. ACR BI-RADS Category 1: Negative. Result letter will be mailed to the patient. Note: At least 10% of breast cancer is not imaged by mammography. Dictated by: Dictated on workstation # [id number]
== END ==
LOC: RAD 08:15
PROVIDERS: ATTEND Surgery
DX: Z12.31 Encounter for screening mammogram for malignant neoplasm of breast (principal)
CPT/HCPCS: 77063; 77067

== ENCOUNTER 2020-09-11 05:34 | Outpatient (CLI) | payer MEDICARE, OTHER ==
[~2020-09-11] VITALS: Ht 160 cm; Wt 59.2 kg
[2020-09-11] MEDS ORDERED: CHOL-34 PO (09:35)
[2020-09-11] MEDS ORDERED: ZINC50TA58 PO (09:35)
== END 2020-09-11 09:41 | disposition home or self-care (01) ==
LOC: PREOP 05:34
PROVIDERS: ATTEND Specialist
DX: Z01.818 Encounter for other preprocedural examination (principal)

== ENCOUNTER 2020-09-15 06:04 | Day surgery (SDC) | payer MEDICARE, OTHER ==
[~2020-09-15] VITALS: Ht 160 cm; Wt 59.2 kg
[~2020-09-15 06:04] MED LIST changes: +CHOL-34 PO; +ZINC50TA58 PO
[2020-09-15] MEDS ORDERED: LIDOCAINE PF 1% 2 ML VIAL IR PRN (06:15)
[2020-09-15] MEDS ORDERED: TIMOLOL MALEATE 0.5% 5 ML (TIMOPTIC) BTL OU PRN (06:15)
[2020-09-15] MEDS ORDERED: MOXIFLOXACIN OPHTH SOLN 5 MG/ML 0.3 ML SYRINGE OP ONE (06:15)
[2020-09-15] MEDS ORDERED: POVIDONE (BETADINE) OPHTH SOLN 5% 30 ML OP ONE (06:15)
[2020-09-15] MEDS: TETRACAINE 0.5% OPHTH SOLN 4 ML BTL (SINGLE DOSE ONLY) OU PRN ×4 (06:22→06:41)
[2020-09-15 06:27] VITALS: BP 135/79
[2020-09-15] MEDS: TROPICAMIDE 1% OPH SOLN (MYDRIACYL) 15 ML BTL OP SCH ×3 (06:30→06:41)
[2020-09-15] MEDS: PHENYLEPHRINE 10% OPHTH (NEO-SYN) 5 ML BTL OU SCH ×3 (06:30→06:41)
[2020-09-15] MEDS ORDERED: MIDAZOLAM 2 MG/2 ML (VERSED) VIAL ONE (07:16)
--- NOTE | 2020-09-15 07:17 | Ophthalmologist Pre-Op Note ---
Pre-Operative Progress Note H&P Reviewed The H&P was reviewed, patient examined and no changes noted. Date H&P Reviewed: September 15, 2020 Time H&P Reviewed: 07:17 Pre-Op Dx Cataract, Right Eye CANDIDA WANG MD September 15, 2020 07:17
--- NOTE | 2020-09-15 07:37 | Ophthalmology Operative Report ---
Cataract removal/placement IOL PREOPERATIVE DIAGNOSIS: Cataract Right Eye POSTOPERATIVE DIAGNOSIS: Cataract Right Eye PROCEDURE: Cataract removal and placement of posterior chamber implant, right eye SURGEON: Blake Wang ANESTHESIA: Topical with sedation COMPLICATIONS: None ESTIMATED BLOOD LOSS: Minimal DESCRIPTION OF PROCEDURE: After proper informed consent was obtained, the patient, a 65 female, was taken to the Operating Room and the right eye was anesthetized with tetracaine. The right eye was then prepped and draped in the usual manner. A wire lid speculum was placed. A paracentesis was made at the left hand position. Preservative free lidocaine was injected into the anterior chamber followed by viscoelastic. A clear corneal incision was made in the temporal position. A capsulorrhexis was preformed and the central nuclear and cortical material were removed. The posterior capsule was polished and Abdulaziz [id number] 23.5 IOL was placed into the capsular bag. The residual viscoelastic was aspirated and balanced saline solution was injected into the anterior chamber. Moxifloxacin was injected into the anterior chamber. The wound was checked and found to be water tight. The patient tolerated the procedure well without complications. BLAKE WANG MD September 15, 2020 07:37
[2020-09-15 07:47] VITALS: BP 151/103
[2020-09-15] MEDS ORDERED: acetaZOLAMIDE ER 500 MG CAP (DIAMOX SEQUELS) PO ONE (08:00)
--- NOTE | 2020-09-15 10:21 | Anesthesia-General Post-Op ---
MAC Patient Condition Mental Status/LOC: Same as Preop Cardiovascular: Satisfactory Nausea/Vomiting: Absent Respiratory: Satisfactory Pain: Controlled Complications: Absent Post Op Complications Complications None Follow Up Care/Instructions Patient Instructions None needed. Anesthesiology Discharge Order Discharge Order Patient is doing well, no complaints, stable vital signs, no apparent adverse anesthesia problems. No complications reported per nursing. CARLIN JOE CRNA September 15, 2020 10:20
== END 2020-09-15 07:45 ==
LOC: SDC 06:04
PROVIDERS: ATTEND Specialist
DX: H25.11 Age-related nuclear cataract, right eye (principal); Z87.891 Personal history of nicotine dependence; Z85.828 Personal history of other malignant neoplasm of skin; Z80.3 Family history of malignant neoplasm of breast
CPT/HCPCS: 66984; V2632

== ENCOUNTER → 2021-08-29 | Outpatient (CLI) | payer MEDICARE, OTHER ==
--- NOTE | 2021-08-29 14:42 | Diagnostic Imaging Report ---
Indication: Routine screening. Comparison is made with prior mammogram from 08/25/2020 and 04/30/2019. 2-D and 3-D bilateral screening mammography was performed with CAD. CAD is utilized. The current study was also evaluated with a Computer Aided Detection (CAD) system. Both breasts are heterogeneously dense, limiting the sensitivity of mammography. The parenchymal pattern is stable. No mass or malignant-appearing microcalcifications are seen. Axillae are unremarkable. IMPRESSION: BI-RADS Category 1 No mammographic features suspicious for malignancy are identified. ACR BI-RADS Category 1: Negative. Result letter will be mailed to the patient. Note: At least 10% of breast cancer is not imaged by mammography. Dictated by: Dictated on workstation # [id number]
== END ==
LOC: RAD 10:15
PROVIDERS: ATTEND Surgery
DX: Z12.31 Encounter for screening mammogram for malignant neoplasm of breast (principal)
CPT/HCPCS: 77063; 77067

== ENCOUNTER 2022-01-02 07:03 | Outpatient (CLI) | payer MEDICARE, OTHER ==
[~2022-01-02] VITALS: Ht 160 cm; Wt 59.1 kg
== END 2022-01-07 10:28 ==
LOC: PREOP 07:03
PROVIDERS: ATTEND Specialist
DX: Z01.818 Encounter for other preprocedural examination (principal)

== ENCOUNTER 2022-01-11 07:54 | Day surgery (SDC) | payer MEDICARE, OTHER ==
[~2022-01-11] VITALS: Ht 160 cm; Wt 59.1 kg
[2022-01-11 08:07] VITALS: BP 144/73
--- NOTE | 2022-01-11 08:07 | Ophthalmologist Pre-Op Note ---
Pre-Operative Progress Note H&P Reviewed The H&P was reviewed, patient examined and no changes noted. Date H&P Reviewed: Jan 11, 2022 Time H&P Reviewed: 08:07 Pre-Op Dx Secondary Cataract, Right Eye CANDIDA WANG MD Jan 11, 2022 08:07
[2022-01-11] MEDS: TETRACAINE 0.5% OPHTH SOLN 4 ML BTL (SINGLE DOSE ONLY) OU PRN ×3 (08:10→08:16)
[2022-01-11] MEDS ORDERED: PHENYLEPHRINE 10% OPHTH (NEO-SYN) 5 ML BTL OU PRN (08:15)
[2022-01-11] MEDS ORDERED: TROPICAMIDE 1% OPH SOLN (MYDRIACYL) 15 ML BTL OU PRN (08:15)
--- NOTE | 2022-01-11 09:03 | Ophthalmology Operative Report ---
YAG Capsulotomy PREOPERATIVE DIAGNOSIS: Secondary Cataract Right Eye POSTOPERATIVE DIAGNOSIS: Secondary Cataract Right Eye PROCEDURE: YAG Capsulotomy, right eye SURGEON: Blake Wang ANESTHESIA: Topical anesthesia COMPLICATIONS: None ESTIMATED BLOOD LOSS: Minimal DESCRIPTION OF PROCEDURE: After proper informed consent was obtained, the patient's, a 66 female, right eye received one drop of Tropicamide and one drop of Tetracaine. The patient was then placed at the YAG laser and using a power of [ 3.5] millijoules and [ 29] bursts were used to fashion a central capsulotomy. The patient tolerated the procedure well without complications. BLAKE WANG MD Jan 11, 2022 09:03
== END 2022-01-11 08:47 | disposition home or self-care (01) ==
LOC: SDC 07:54
PROVIDERS: ATTEND Specialist
DX: H26.40 Unspecified secondary cataract (principal); Z87.891 Personal history of nicotine dependence

== ENCOUNTER → 2023-02-18 | Outpatient (CLI) | payer MEDICARE, OTHER ==
--- NOTE | 2023-02-18 15:28 | Diagnostic Imaging Report ---
Indication: Bilateral digital 2-D and 3-D screening with CAD. Compared: 08/2021, 08/2020 and 04/2019. Findings: Density 3. No breast mass, spiculated lesion, architectural distortion, suspicious calcifications or changes to suggest malignancy. Impression: ACR BI-RADS Category 1: Negative. Result letter will be mailed to the patient. Note: At least 10% of breast cancer is not imaged by mammography. BI-RADS Category 1 Dictated by: Dictated on workstation # [id number]
== END ==
LOC: RAD 08:37
PROVIDERS: ATTEND Nurse Practitioner
DX: Z12.31 Encounter for screening mammogram for malignant neoplasm of breast (principal)
CPT/HCPCS: 77063; 77067